=== PATIENT | female | born 1945 | race Caucasian/White ===

== ENCOUNTER 2019-11-30 19:20 | Inpatient (IN) | payer MEDICARE, MEDICAID ==
[2019-12-01 03:19] VITALS: BP 133/88
[2019-12-01] MEDS ORDERED: Acetaminophen 500 MG TAB PO PRN (03:19)
[2019-12-01] MEDS ORDERED: Maalox 30 mL Cup PO PRN (03:19)
[2019-12-01] MEDS ORDERED: Magnesium Hydroxide (MOM) 30 mL UDC PO PRN (03:19)
[2019-12-01] MEDS ORDERED: GLUCAGON HCl 1 MG KIT IM PRN (04:39)
[2019-12-01] MEDS: INSULIN LISPRO SLIDING SCALE 100 UNITS/ML UNIT SUBQ SCH ×4 (06:53→21:10)
--- NOTE | 2019-12-01 08:07 | Consultation ---
DATE OF CONSULTATION: 12/01/2019 INTERNAL MEDICINE CONSULTATION HISTORY OF PRESENT ILLNESS: We have a 74-year-old female with multiple medical problems who was at a [facility] where she became very combative and agitated. The patient has no chest pain, no shortness of breath, nausea, or vomiting. The patient is being very combative with the nursing staff. She is not cooperative with answering many questions. PAST MEDICAL HISTORY: 1. Diabetes. 2. Bipolar. 3. Hyperlipidemia. 4. Hypertension. 5. History of acute renal failure. 6. Obesity. 7. History of pneumonia. 8. Cardiac arrhythmia. 9. Congestive heart failure. 10. Parkinson's. 11. Probable dementia. PAST SURGICAL HISTORY: As mentioned above. MEDICATIONS: List completely reviewed. ALLERGIES: None. SOCIAL HISTORY: The patient denies tobacco, alcohol or IV drugs. REVIEW OF SYSTEMS: A 14-point review of system was done, which was unremarkable. PHYSICAL EXAMINATION: VITAL SIGNS: Temperature is 98.2, pulse is 89, respirations 20, blood pressure 133/88, satting 98% on room air. HEENT: Normocephalic, atraumatic head exam. NECK: Supple. CARDIOVASCULAR: Regular rate and rhythm. LUNGS: Decreased breath sounds. ABDOMEN: Soft, nontender. EXTREMITIES: No edema, cyanosis or clubbing. ASSESSMENT AND PLAN: 1. 5150. 2. Agitation, combativeness. 3. Diabetes. 4. Bipolar disorder. 5. Hypertension. 6. History of renal failure. 7. Status post pneumonia. 8. Obesity. 9. History of questionable cardiac arrhythmia. 10. Congestive heart failure. 11. Parkinson's. At this time, the patient's medications will be continued. We will continue with supportive care. I have discussed the care plan with the psychiatrist and nursing staff here. This visit was performed with a female linux administrator. Chart was completely reviewed by me and outside medical records. JOB# [id number] ANTON
--- NOTE | 2019-12-01 14:39 | Psychiatric Evaluation ---
DATE OF SERVICE: 12/01/2019 JUSTIFICATION FOR HOSPITALIZATION: The patient sent from [facility] agitation, yelling and confusion, hitting staff. HISTORY OF PRESENT ILLNESS: A 74-year-old female was at [facility], but aggressive, agitated, yelling, screaming, paranoid, trying to call the police, believing that she was being kidnapped, confused, hitting staff, aggressive toward others. On [id number], the patient just AO to name only, stating "I need to call a taxi so she can go home." PAST PSYCHIATRIC HISTORY: Bipolar per history. Unclear if she has got dementia. FAMILY HISTORY: Noncontributory. SOCIAL HISTORY: All I know is that she is in a [facility], not answering any other questions. MEDICATIONS: Reviewed. MEDICAL HISTORY: Reviewed including diabetes. MENTAL STATUS EXAMINATION: Stated age. Fair eye contact. Unkempt, bizarre, pressured speech, not making much sense, AO to name. Convinced that she needs to go home today. Poor insight, poor impulse control. PROVISIONAL DIAGNOSES: Bipolar per history, concerns for dementia, but unclear. ESTIMATED LENGTH OF STAY: 7-10 days. ASSESSMENT: The patient requiring hospitalization, bizarre, hitting, aggressive, yelling, screaming, cursing. TREATMENT PLAN: Includes group as well as milieu therapy. Titration of medications. CONDITIONS FOR DISCHARGE: Improved mood, improved affect, better control of any manic symptoms, aggression, violent. JOB# [id number]
[2019-12-02] MEDS: INSULIN LISPRO SLIDING SCALE 100 UNITS/ML UNIT SUBQ SCH ×4 (06:46→21:09)
--- NOTE | 2019-12-02 23:22 | Progress Notes ---
DATE: 12/02/2019 Dr. Kingston covering for Dr. Morgan Gleason. SUBJECTIVE: The patient was interviewed. Case was discussed with staff. Chart and records were reviewed. The patient has been constantly yelling out loud. She is not making any sense. She is screaming at unseen others, very psychotic at this time. Unable to cooperate with the interview. She is impulsively yelling out loud and not able to be redirected. MENTAL STATUS EXAMINATION: The patient is an elderly female in bed, yelling at the top of her lungs, disorganized, and responding to internal stimuli. Unable to assess for suicidal or homicidal thoughts. She is alert and oriented x 1. Insight, judgment and impulse control is very poor at this time. ASSESSMENT: This is a 74-year-old female, admitted to [facility] on 12/01/2019 yesterday due to increasing agitation, yelling, screaming and paranoia. The patient at this time continues to have similar symptoms. She continues to be extremely psychotic and paranoid, yelling out loud, unable to cooperate at all with the simple interview and has no plan for self-care. PLAN: We will continue the patient's acute hospitalization. We will transition the patient onto a 14-day hold. We will encourage the patient to verbalize her needs and participate in group and milieu therapy. JOB# [id number]
[2019-12-03] MEDS: INSULIN LISPRO SLIDING SCALE 100 UNITS/ML UNIT SUBQ SCH ×4 (06:36→21:05)
--- NOTE | 2019-12-03 23:05 | Progress Notes ---
DATE: 12/03/[address] Morgan Gleason. SUBJECTIVE: The patient was interviewed. Case was discussed with staff. Chart and records were reviewed. Per the staff, the patient has been constantly screaming for no apparent reasons. She is only alert and oriented to her name. The patient is overall uncooperative. She is talking to unseen others, labile and angry. The patient was visited at bedside. She is not making any sense. She is talking very loudly. She is very angry. She has poor insight into her condition. She is not able to really discuss her internal state much more than this. MENTAL STATUS EXAMINATION: The patient is an elderly female in bed, yelling loudly, uncooperative with the interview, disorganized. Unable to assess for suicidal or homicidal thoughts, internally preoccupied, paranoid. Alert and oriented x 1. Insight, judgment and impulse control are poor. ASSESSMENT: A 74-year-old female admitted to [facility] on 12/01/2019 due to increasing agitation, yelling and screaming and paranoid. The patient at this time continues with similar symptoms. She is yelling at the top of her lungs. She is not able to state why this is the case. In addition, she is paranoid. She is easily angered and she has no plan for self-care. PLAN: We will continue patient on acute hospitalization. We will continue medications as prescribed. We will encourage patient to verbalize needs and participate in group and milieu therapy. JOB# [id number]
[2019-12-04] MEDS: INSULIN LISPRO SLIDING SCALE 100 UNITS/ML UNIT SUBQ SCH ×4 (06:36→21:08)
[2019-12-04] MEDS: Lactobacillus Rhamnosus GG 15 Billion CFU CAP.SPRINK PO SCH (08:28)
--- NOTE | 2019-12-04 12:55 | Progress Notes ---
DATE: 12/04/2019 SUBJECTIVE: The patient has no chest pain, shortness of breath. No nausea, vomiting, abdominal pain. PHYSICAL EXAMINATION: GENERAL: The patient's agitation is controlled. VITAL SIGNS: Temperature is 98.4, pulse 105, respirations 20, blood pressure 146/84. HEENT: Normocephalic, atraumatic head exam. NECK: Supple. CARDIOVASCULAR: Regular rate and rhythm. LUNGS: Decreased breath sounds. ABDOMEN: Soft, nontender. LABORATORY DATA: Show blood sugar of 124, 107, 112. ASSESSMENT AND PLAN: 1. Agitation. 2. Combativeness. 3. Diabetes. 4. Bipolar. 5. Hypertension. 6. History of renal failure. 7. History of congestive heart failure. 8. History of cardiac arrhythmia. At this time, blood sugars appear to be controlled. Blood pressure is not optimal, may consider adding a low-dose KIMBERLY inhibitor for better blood pressure control. In the meantime, the patient will continue with Glucotrol and sliding scale insulin. Awaiting the final hemoglobin A1c and lipid panel. JOB# [id number]
--- NOTE | 2019-12-04 13:11 | Progress Notes ---
DATE: 12/04/2019 SUBJECTIVE: This is a 74-year-old female, currently in the hospital, still yelling, screaming, very confused in her bed, naked in fact, just staring at me blankly, does not say anything, I try to put a sheet on her, but she resists, currently on dosing of Seroquel and Depakote. Staff noting still yelling, agitation, extreme confusion, constantly screaming for no apparent reasons, just knows her name, not cooperative as noted, angry, very poor insight. female of stated age, staring at me blankly, not appropriately closed, seems to be internally preoccupied, paranoid, bizarre, poor orientation, poor impulse control. Medications were reviewed. Vitals were reviewed. Blood pressure 146/84, pulse of 105. Her medications were noted include Seroquel. PLAN: Difficult case, multiple medical problems, diabetes, possible dementia diagnosis, but it is somewhat unclear. Some complexities in even prescribing Seroquel to this patient given her diabetes diagnosis. I will switch agents something that is metabolically more tolerable such as Risperdal or Haldol. We will continue to monitor closely given ongoing and acute symptoms. JOB# [id number]
[2019-12-05] MEDS: INSULIN LISPRO SLIDING SCALE 100 UNITS/ML UNIT SUBQ SCH ×3 (06:53→16:45)
[2019-12-05] MEDS: Lactobacillus Rhamnosus GG 15 Billion CFU CAP.SPRINK PO SCH (08:22)
--- NOTE | 2019-12-05 15:20 | Progress Notes ---
DATE: 12/05/2019 Case was discussed with staff of the patient, reviewed records. Covering for Dr. Gleason. This is a 74-year-old female who was admitted on 12/01/2019, transferred from a nursing facility because of aggressive, agitated behavior, yelling and screaming. Parents are trying to call the police, believing that she was being kidnapped, confused, hitting staff, aggressive towards others. The patient taxi with a history of bipolar disorder, unable to answer questions. The patient is apparently unpredictable, impulsive, needing redirection. Continues to have poor insight, acting erratic, unable to answer questions, resistant to care. Her vital signs are stable. She is currently on Seroquel. The patient has multiple medical conditions and dementia. No side effects with the medication, no sedation, no nausea, no extrapyramidal symptoms. She is on Depakote 500 mg twice a day, Seroquel was discontinued and changed to Risperdal 0.5 mg twice a day with no side effects, no sedation, no nausea, no extrapyramidal symptoms. We will continue outpatient group therapy, milieu therapy, and adjust medications as needed. JOB# [id number] ANTON
--- NOTE | 2019-12-05 18:39 | Progress Notes ---
DATE: 12/05/2019 SUBJECTIVE: No fevers, chills, night sweats. OBJECTIVE: VITAL SIGNS: Temperature is 98.3, pulse 120, respirations 20, and blood pressure is 150/91. HEENT: Normocephalic, atraumatic head exam. NECK: Supple. CARDIOVASCULAR: Regular rate and rhythm. LUNGS: Clear. ABDOMEN: Soft, nontender. EXTREMITIES: No edema, cyanosis or clubbing. ASSESSMENT: 1. Diabetes. 2. Bipolar. 3. Hypertension. 4. History of renal failure. PLAN: The patient's tachycardia will need to be addressed. We will do repeat vitals. May need an EKG, if the tachycardia is persistent. JOB# [id number]
--- NOTE | 2019-12-06 13:37 | Discharge Summary ---
DATE OF DISCHARGE: 12/05/2019 JUSTIFICATION FOR HOSPITALIZATION: The patient confused, yelling, aggressive, agitated, hitting staff. HISTORY OF PRESENT ILLNESS: A 74-year-old female was yelling, aggressive, hitting staff, confused, disorganized, history of bipolar, could not care for basic needs, coming from a correction. When she came to the hospital, she was very agitated, confused, still aggressive. PAST PSYCHIATRIC HISTORY: Unclear. Noted bipolar in the chart. SOCIAL HISTORY: Coming from a correction. PROVISIONAL DIAGNOSES: Bipolar per history, concerns for dementia, delirium. HOSPITAL COURSE: After initial assessment, the patient was admitted, placed on a 14-day hold. Medications were adjusted, titrated, medically decompensated, sent to a [facility] on 12/05/2019. CONDITIONS FOR DISCHARGE: Could benefit from further hospitalization. DISCHARGE DIAGNOSES: Bipolar per documentation, concerns for dementia versus delirium. MEDICAL: Please see full H and P. PROGNOSIS: Could benefit from further hospitalization. JOB# [id number]
== END 2019-12-05 17:15 | DRG 885 ==
LOC: GERO 12-01 01:20
PROVIDERS: ADMIT Psychiatry & Neurology Psychiatry; ATTEND Psychiatry & Neurology Psychiatry
DX: F31.9 Bipolar disorder, unspecified (principal); I11.0 Hypertensive heart disease with heart failure; E11.9 Type 2 diabetes mellitus without complications; E66.9 Obesity, unspecified; I50.9 Heart failure, unspecified; G20 Parkinson's disease; Z68.32 Body mass index [BMI] 32.0-32.9, adult
CPT/HCPCS: 82948-90; 83036-90; Z7610

== ENCOUNTER 2019-12-11 15:52 | Inpatient (IN) | payer MEDICARE, MEDICAID ==
[2019-12-11 16:51] VITALS: BP 158/81
[2019-12-11] MEDS ORDERED: Maalox 30 mL Cup PO PRN (16:54)
[2019-12-11] MEDS ORDERED: Magnesium Hydroxide (MOM) 30 mL UDC PO PRN (16:54)
[2019-12-12] MEDS: INSULIN LISPRO SLIDING SCALE 100 UNITS/ML UNIT SUBQ SCH ×4 (07:00→21:00)
[2019-12-12] MEDS: Multivitamin Tab PO SCH (08:35)
--- NOTE | 2019-12-12 10:09 | Psychiatric Evaluation ---
DATE OF SERVICE: 12/12/2019 JUSTIFICATION FOR HOSPITALIZATION: Altered, impulsive, unpredictable, concerns for ability to care for basic needs. HISTORY OF PRESENT ILLNESS: A 74-year-old female who was transferred to [facility] originally from [facility]. There she was loud, unruly, agitated, trying to hit staff. Currently, very confused, disoriented, making nonsensical statements. AO to name. She knows she is in a hospital. She does not know why she is in the hospital. Placed her a blanket as the reason she is in the hospital, does not know the year. Very poor historian, yelling for no reason and agitated, ongoing poor impulse control, concerns that she may strike out at others. PAST PSYCHIATRIC HISTORY: Recent admission to this hospital. Concerns for bipolar, positive cognitive decline. PAST MEDICAL HISTORY: Diabetes, hyperlipidemia, hypertension, CHF, obesity. MEDICATIONS: Reviewed. SOCIAL HISTORY: Unclear, poor historian. The patient requires a higher level of nursing care. Vitals were noted. Blood pressure 158/81, pulse mild tachycardia. MENTAL STATUS EXAMINATION: Stated age. Fair eye contact. Speech is rambling, nonsense, AO to name and place only. Unclear SI or HI, delusional, making nonsensical statements, poor impulse control. Poor insight. DIAGNOSIS: Concerns for bipolar, concerns for dementia. MEDICAL: Noted. ESTIMATED LENGTH OF STAY: 7-10 days. ASSESSMENT: The patient requiring hospitalization, cannot be cared for at a lower level, agitated, impulsive, aggressive. PLAN: Treatment plan includes group as well as milieu therapy. We will titrate and adjust medications. Continue to titrate Risperdal. Monitor vitals, tachycardia for example. CONDITIONS FOR DISCHARGE: Improved mood, improved affect, better control of her agitation. [facility]# [id number]
[2019-12-13] MEDS: INSULIN LISPRO SLIDING SCALE 100 UNITS/ML UNIT SUBQ SCH ×4 (06:46→21:47)
[2019-12-13] MEDS: Multivitamin Tab PO SCH (08:18)
--- NOTE | 2019-12-13 10:55 | Consultation ---
DATE OF CONSULTATION:12/13/19 [facility] INTERNAL MEDICINE CONSULTATION CHIEF COMPLAINT: Pneumonia. HISTORY OF PRESENT ILLNESS: We have a 74-year-old female with bipolar, diabetes, hypertension, who was recently transferred to [facility] for treatment of pneumonia. The patient was found to be tachycardic. At this time, the patient has no shortness of breath, no chest pain. No fevers, chills or night sweats. PAST MEDICAL HISTORY: 1. Diabetes. 2. Bipolar. 3. Hypertension. 4. Recent renal failure. PAST SURGICAL HISTORY: None. MEDICATIONS: List reviewed. ALLERGIES: None. SOCIAL HISTORY: Tobacco, IV drugs, ETOH negative. PHYSICAL EXAMINATION: VITAL SIGNS: Temperature is 98.6, pulse 105, respirations 16, blood pressure is 146/92. HEENT: Normocephalic, atraumatic head exam. NECK: Supple. CARDIOVASCULAR: Regular rate and rhythm. LUNGS: Decreased breath sounds. ABDOMEN: Soft, nontender. EXTREMITIES: No edema, cyanosis or clubbing. ASSESSMENT AND PLAN: 1. Pneumonia. 2. Bipolar. 3. Diabetes. 4. Hypertension. The patient will be continued on same meds. The patient will continue Levaquin 500 mg p.o. daily for 7 days. [facility]# [id number] [facility]ITAL[facility]
--- NOTE | 2019-12-13 12:31 | Progress Notes ---
DATE: 12/13/2019 SUBJECTIVE: A 74-year-old female, currently in the hospital, very confused, disoriented, slept about 5 hours, does not know where she is or what is going on. AO to name only, preoccupied, mostly keeps to self, withdrawn, rambling nonsensically, hard to understand what she is talking about because she is so incredibly confused, throwing her clothes on the ground, at times, not appropriately dressed, mumbling to self, multiple medical problems, seen by Dr. Flores. Medications were reviewed. Labs were reviewed. Vitals were reviewed. Reviewed consultation note by Dr. Flores. Medical problems include pneumonia, diabetes, hypertension, recent renal failure. Vitals were noted. Blood pressure 147/89, pulse of approximately 105. MENTAL STATUS EXAMINATION: Stated age. Fair eye contact, rambling, talking nonsense and bizarre ideations. Poor orientation, poor impulse control, unruly at times. Concerns for bipolar, likely dementia. PLAN: Complex case, multiple medical problems, hard to control symptoms, high heart rate. We will continue dosing of Risperdal. Monitor closely. JOB# [id number]
[2019-12-14] MEDS ORDERED: Albuterol Nebulizer 2.5mg/3mL HHN PRN (06:29)
[2019-12-14] MEDS: INSULIN LISPRO SLIDING SCALE 100 UNITS/ML UNIT SUBQ SCH (06:50)
[2019-12-14] MEDS: Multivitamin Tab PO SCH (08:24)
--- NOTE | 2019-12-14 11:54 | Progress Notes ---
DATE: 12/14/2019 I came to see the patient today. She was being wheeled out, went to [place] [facility], apparent shortness of breath, limited to no interaction with the patient, given the emergent nature of what was going on. Discussed with nursing staff. Medications were reviewed. Labs were reviewed. It is unclear whether the patient will be admitted to [facility] or perhaps she may return after medical stabilization. JOB# [id number]
--- NOTE | 2019-12-14 12:56 | Discharge Summary ---
DATE OF DISCHARGE: 12/14/2019 JUSTIFICATION FOR HOSPITALIZATION: Coming on a 5150 hold from [facility], readmitted, agitated and aggressive. HISTORY OF PRESENT ILLNESS: A 74-year-old female, agitated, confused, aggressive and unable to be cared for at a lower level of care, screaming, talking nonsense, ongoing confusion. PAST PSYCHIATRIC HISTORY: Recent admission. FAMILY HISTORY: Unclear. SOCIAL HISTORY: Unclear. PROVISIONAL DIAGNOSIS: Likely dementia, rule out bipolar. MEDICAL: Please see full H and P. HOSPITAL COURSE: The patient admitted. Medications were re-started. She decompensated medically, sent back to [facility] and admitted, chronic tachycardia, could benefit from further hospitalization, confused, disoriented. No overt SI or HI, talking nonsense. DISCHARGE DIAGNOSIS: Likely dementia, rule out bipolar. PROGNOSIS: The patient could benefit from further hospitalization. JOB# [id number]
== END 2019-12-14 08:56 | disposition short-term general hospital (02) | DRG 884 ==
LOC: GERO 15:52
PROVIDERS: ADMIT Psychiatry & Neurology Psychiatry; ATTEND Psychiatry & Neurology Psychiatry
DX: F03.90 Unspecified dementia, unspecified severity, without behavioral disturbance, psychotic disturbance, mood disturbance, and anxiety (principal); I11.0 Hypertensive heart disease with heart failure; J18.9 Pneumonia, unspecified organism; E11.9 Type 2 diabetes mellitus without complications; E78.5 Hyperlipidemia, unspecified; I50.9 Heart failure, unspecified; F31.9 Bipolar disorder, unspecified; R00.0 Tachycardia, unspecified; E66.9 Obesity, unspecified; Z68.32 Body mass index [BMI] 32.0-32.9, adult
CPT/HCPCS: 82948-90; 97530; J7613; X3904; Z7610

== ENCOUNTER 2019-12-18 20:15 | Inpatient (IN) | payer MEDICARE, MEDICAID ==
[2019-12-18] MEDS ORDERED: Albuterol Nebulizer 2.5mg/3mL HHN PRN (20:25)
[2019-12-19 02:33] VITALS: BP 114/68
[2019-12-19] MEDS ORDERED: Magnesium Hydroxide (MOM) 30 mL UDC PO PRN (03:48)
--- NOTE | 2019-12-19 12:38 | Psychiatric Evaluation ---
DATE OF SERVICE: 12/19/2019 JUSTIFICATION FOR HOSPITALIZATION: Coming back from [facility] due to exacerbation of COPD, ongoing agitation, confusional state. HISTORY OF PRESENT ILLNESS: A 74-year-old female, currently in the hospital, was readmitted, confused, very disoriented, still yelling, screaming, very difficult to control her behaviors, AO to name, not place, not situation. She states the year is 2021. She states the month is October. She states the day is 2018. When I asked her where she was born, she states "[place]," very disoriented, unruly at times, very impulsive behaviors. Per the 5150 hold, confused, poor orientation, nonsensical, unable to really come up with any type of safe disposition plan. PAST PSYCHIATRIC HISTORY: Recent admission to this hospital, seems that she is quite demented, possibly with history of bipolar per documentation. FAMILY HISTORY: Noncontributory. SOCIAL HISTORY: The patient had been at a correction. They could not handle her beyond this, I am not quite clear about any social support systems. MEDICATIONS: Noted. MENTAL STATUS EXAMINATION: Stated age, very confused, disoriented, still loud at times, unruly, extreme confusion noted, delusions, stating that she wants to leave to discharge her home. DIAGNOSIS: Dementia, rule out bipolar. MEDICAL: Please see full H and P. ESTIMATED LENGTH OF STAY: 7-10 days. ASSESSMENT: The patient requiring hospitalization, agitated, very confused, disoriented, hard to follow directions, yelling, screaming. TREATMENT PLAN: Includes group as well as milieu therapy. CONDITIONS FOR DISCHARGE: Improved mood, improved affect, better control of her agitated behaviors, also we need to work on a safe disposition plan. JOB# [id number]
--- NOTE | 2019-12-19 18:58 | Consultation ---
DATE OF CONSULTATION: 12/19/2019 INTERNAL MEDICINE CONSULTATION HISTORY OF PRESENT ILLNESS: I am seeing this patient at the request of Dr. Gleason. We have a 74-year-old female with COPD, hypertension, dementia, who was transferred from [facility] for continued management of COPD and psychosis. The patient is mostly not interactive. No nausea, vomiting, abdominal pain, diarrhea. PAST MEDICAL HISTORY: 1. COPD. 2. Tachycardia. PAST SURGICAL HISTORY: None. MEDICATIONS: List reviewed. ALLERGIES: None. SOCIAL HISTORY: History of tobacco, IV drugs. ETOH negative. PHYSICAL EXAMINATION: VITAL SIGNS: Temperature is 98.6, pulse 79, respirations 20, blood pressure 104/58, satting 91%. HEENT: Normocephalic, atraumatic head exam. NECK: Supple. CARDIOVASCULAR: Regular rate and rhythm. LUNGS: Decreased breath sounds. ABDOMEN: Soft, nontender. EXTREMITIES: No edema, cyanosis or clubbing. ASSESSMENT AND PLAN: 1. Depression. 2. Chronic obstructive pulmonary disease. We will continue with supportive care and go from there. JOB# [id number]
[2019-12-19] MEDS: Magnesium Hydroxide (MOM) 30 mL UDC PO SCH (21:26)
--- NOTE | 2019-12-20 13:42 | Internal Medicine Prog Note ---
Internal Medicine Subjective - Subjective Service Date: 12/20/19 Patient seen and examined:: without staff Patient is:: asleep Internal Medicine Objective - Physical Exam Vitals and I&O: Vital Signs Temp 97.2 F 12/20/19 05:57 Pulse 128 12/20/19 08:56 Resp 20 12/20/19 08:00 BP 116/70 12/20/19 08:56 Pulse Ox 92 12/20/19 05:57 Intake & Output 12/19/19 12/20/19 12/20/19 18:59 06:59 18:59 Intake Total 480 240 Balance 480 240 Intake: Oral 480 240 Other: # Voids 3 2 # Bowel Movements 0 0 Active Medications: Current Medications Acetaminophen (Tylenol) 650 mg PO Q4H PRN PRN Reason: Pain (Mild 1-3) Stop: 02/17/20 02:33 Albuterol Sulfate (Albuterol 2.5mg/3ml Neb Ud) 2.5 mg HHN Q4HRT PRN PRN Reason: Shortness of Breath Stop: 02/16/20 20:24 Divalproex Sodium (Depakote Dr) 500 mg PO BID [facility]; Protocol Stop: 02/17/20 11:59 Last Admin: 12/20/19 08:56 Dose: 500 mg Glipizide (Glucotrol) 5 mg PO QDAC [facility] Stop: 02/17/20 07:29 Last Admin: 12/20/19 06:44 Dose: 5 mg Lorazepam (Ativan) 0.5 mg PO Q4HR PRN; Protocol PRN Reason: Anxiety Stop: 01/18/20 02:33 Magnesium Hydroxide (Milk Of Magnesia) 30 ml PO HS [facility] Stop: 02/17/20 20:59 Last Admin: 12/19/19 21:26 Dose: 30 ml Metoprolol Tartrate (Lopressor) 50 mg PO BID [facility] Stop: 02/17/20 08:59 Last Admin: 12/20/19 08:56 Dose: 50 mg Risperidone (Risperdal) 0.5 mg PO BID [facility]; Protocol Stop: 02/17/20 11:59 Last Admin: 12/20/19 08:56 Dose: 0.5 mg Senna (Senna) 8.6 mg PO BID [facility] Stop: 02/17/20 08:59 Last Admin: 12/20/19 08:56 Dose: 8.6 mg Zolpidem Tartrate (Ambien) 5 mg PO HS PRN PRN Reason: Insomnia Stop: 02/17/20 02:33 General: lethargic HEENT: NC/AT Neck: Supple Lungs: CTAB Cardiovascular: RRR Abdomen: soft Internal Medicine Assmt/Plan - Assessment Assessment: 1. Agitation 2. A.fib 3. Recent pneumonia - Plan Plan: continue supportive care
[2019-12-20] MEDS: Magnesium Hydroxide (MOM) 30 mL UDC PO SCH (21:37)
--- NOTE | 2019-12-20 23:15 | Progress Notes ---
DATE: 12/20/2019 SUBJECTIVE: A 74-year-old female who is sleeping on exam, mostly withdrawn, limited [id number], because she is tired. Staff noting she remains somewhat labile, at times irritable, but generally confused, difficult to interview. The patient is somewhat sleepy on exam. Discussed with staff. Medications were reviewed. Labs were reviewed. Vitals were reviewed. Possible side effect of medications but it is unclear at this time. MENTAL STATUS EXAMINATION: Stated age. Fair eye contact, sleepy, hard to arouse, confused. No overt SI or HI. DIAGNOSIS: Unchanged. PLAN: We will continue to monitor. The patient remains sleepy or tired during the daytime. We will make appropriate medication adjustments. JOB# [id number]
--- NOTE | 2019-12-21 15:27 | Internal Medicine Prog Note ---
Internal Medicine Subjective - Subjective Service Date: 12/21/19 Patient seen and examined:: without staff Patient is:: asleep, non-verbal, non-interactive Per staff patient has:: no adverse event, no episodes of fall Internal Medicine Objective - Physical Exam Vitals and I&O: Vital Signs Temp 98.1 F 12/21/19 14:00 Pulse 99 12/21/19 14:00 Resp 20 12/21/19 14:00 BP 137/94 12/21/19 14:00 Pulse Ox 90 12/21/19 14:00 Intake & Output 12/20/19 12/21/19 12/21/19 18:59 06:59 18:59 Intake Total 670 120 Balance 670 120 Intake: Oral 670 120 Other: # Voids 2 # Bowel Movements 0 Active Medications: Current Medications Acetaminophen (Tylenol) 650 mg PO Q4H PRN PRN Reason: Pain (Mild 1-3) Stop: 02/17/20 02:33 Albuterol Sulfate (Albuterol 2.5mg/3ml Neb Ud) 2.5 mg HHN Q4HRT PRN PRN Reason: Shortness of Breath Stop: 02/16/20 20:24 Last Admin: 12/20/19 14:35 Dose: 2.5 mg Divalproex Sodium (Depakote Dr) 125 mg PO BID [facility]; Protocol Stop: 02/19/20 16:59 Glipizide (Glucotrol) 5 mg PO QDAC [facility] Stop: 02/17/20 07:29 Last Admin: 12/21/19 06:58 Dose: 5 mg Lorazepam (Ativan) 0.5 mg PO Q4HR PRN; Protocol PRN Reason: Anxiety Stop: 01/18/20 02:33 Magnesium Hydroxide (Milk Of Magnesia) 30 ml PO HS [facility] Stop: 02/17/20 20:59 Last Admin: 12/20/19 21:37 Dose: 30 ml Metoprolol Tartrate (Lopressor) 50 mg PO BID [facility] Stop: 02/17/20 08:59 Last Admin: 12/21/19 08:36 Dose: 50 mg Risperidone (Risperdal) 0.25 mg PO BID [facility]; Protocol Stop: 02/19/20 16:59 Senna (Senna) 8.6 mg PO BID [facility] Stop: 02/17/20 08:59 Last Admin: 12/21/19 08:37 Dose: 8.6 mg Zolpidem Tartrate (Ambien) 5 mg PO HS PRN PRN Reason: Insomnia Stop: 02/17/20 02:33 General: lethargic HEENT: NC/AT Neck: Supple Lungs: CTAB Cardiovascular: RRR Abdomen: soft Internal Medicine Assmt/Plan - Assessment Assessment: 1. Agitation 2. A.fib 3. Recent pneumonia - Plan Plan: continue supportive care
--- NOTE | 2019-12-21 19:16 | Progress Notes ---
DATE: 12/21/2019 SUBJECTIVE: The patient is currently in the hospital, very confused, disoriented, coming in with multiple medical problems. Staff watching her closely. Poor orientation, AO to name only, very sleepy on exam. The patient is hard to interview, just tells me her name, not really telling me anything else. She is on dosing of Depakote. I am going to lower her dosing of Depakote to half the dose or rather more than that, I will lower down to 125 mg twice a day given concerns for over sedation. It was to control her unruly behaviors, poor impulse control, but at this time, she is more medically unwell and is not exhibiting those behaviors. She is also on a small dose of Risperdal. I will also lower the dose down to 0.25 mg twice a day, also for concerns in regards to oversedation. Discussed with nursing staff. Nursing staff notes are reviewed. MEDICATIONS: Reviewed. LABS: Reviewed. VITALS: Reviewed. Blood pressure 141/67, pulse of 105. MENTAL STATUS EXAMINATION: Stated age. Fair eye contact. Speech mumbled. No overt SI or HI, sleepy. ASSESSMENT: A 74-year-old female, currently in the hospital, sleepy, hard to arouse, concerns about her medical problems, possible med-med interactions. PLAN: We will continue inpatient monitoring. We will lower dosing of Depakote and Risperdal. Monitor closely. Complex case given the difficulty in regard to adjusting her medications and also side effects have been a problem, also her medical problems. [facility]# [id number]
[2019-12-21] MEDS: Magnesium Hydroxide (MOM) 30 mL UDC PO SCH (21:28)
--- NOTE | 2019-12-22 12:19 | Internal Medicine Prog Note ---
Internal Medicine Subjective - Subjective Service Date: 12/22/19 Patient seen and examined:: without staff Patient is:: asleep, non-verbal, non-interactive Per staff patient has:: no adverse event, no episodes of fall Internal Medicine Objective - Results Recent Labs: Laboratory Last Values POC Glucose 66 MG/DL (70 - 105) L 12/22/19 11:37 - Physical Exam Vitals and I&O: Vital Signs Temp 98.2 F 12/22/19 05:42 Pulse 80 12/22/19 09:03 Resp 18 12/22/19 05:42 BP 125/44 12/22/19 09:03 Pulse Ox 92 12/22/19 05:42 Intake & Output 12/21/19 12/22/19 12/22/19 18:59 06:59 18:59 Intake Total 1200 240 Balance 1200 240 Intake: Oral 1200 240 Other: # Voids 2 # Bowel Movements 1 2 Active Medications: Current Medications Acetaminophen (Tylenol) 650 mg PO Q4H PRN PRN Reason: Pain (Mild 1-3) Stop: 02/17/20 02:33 Albuterol Sulfate (Albuterol 2.5mg/3ml Neb Ud) 2.5 mg HHN Q4HRT PRN PRN Reason: Shortness of Breath Stop: 02/16/20 20:24 Last Admin: 12/20/19 14:35 Dose: 2.5 mg Divalproex Sodium (Depakote Dr) 125 mg PO BID [facility]; Protocol Stop: 02/19/20 16:59 Last Admin: 12/22/19 09:03 Dose: 125 mg Glipizide (Glucotrol) 5 mg PO QDAC [facility] Stop: 02/17/20 07:29 Last Admin: 12/22/19 06:34 Dose: 5 mg Lorazepam (Ativan) 0.5 mg PO Q4HR PRN; Protocol PRN Reason: Anxiety Stop: 01/18/20 02:33 Magnesium Hydroxide (Milk Of Magnesia) 30 ml PO HS [facility]PL[facility] Stop: 02/17/20 20:59 Last Admin: 12/21/19 21:28 Dose: 30 ml Metoprolol Tartrate (Lopressor) 50 mg PO BID [facility] Stop: 02/17/20 08:59 Last Admin: 12/22/19 09:03 Dose: 50 mg Risperidone (Risperdal) 0.25 mg PO BID [facility]; Protocol Stop: 02/19/20 16:59 Last Admin: 12/22/19 09:02 Dose: 0.25 mg Senna (Senna) 8.6 mg PO BID [facility] Stop: 02/17/20 08:59 Last Admin: 12/22/19 09:02 Dose: 8.6 mg Zolpidem Tartrate (Ambien) 5 mg PO HS PRN PRN Reason: Insomnia Stop: 02/17/20 02:33 General: lethargic HEENT: NC/AT Neck: Supple Lungs: CTAB Cardiovascular: RRR Abdomen: soft Internal Medicine Assmt/Plan - Assessment Assessment: 1. Agitation 2. A.fib 3. Recent pneumonia - Plan Plan: continue supportive care Nutritional Asmnt/Malnutr-PDOC - Dietary Evaluation Malnutrition Findings (Please click <Entered> for more info): Nutritional Asmnt/Malnutrition Start: 12/21/19 16: 43 Text: Status: Complete Freq: Protocol: Document 12/21/19 16:43 CHARLES (Rec: 12/21/19 16:45 CHARLES [email or web address]) Nutritional Asmnt/Malnutrition Patient General Information Nutritional Screening Moderate Risk Diagnosis Psychosis Pertinent Medical Hx/Surgical Hx COPD, Tachycardia, HTN, Dementia Subjective Information Pt is a 74-year-old female re- admitted on 12/17 d/t medical clearance at [facility] and confusion, yelling, and difficulty controlling behaviors. Pt is eating an estimated 40% of meals since re-admittance (x2 days) Per Meal/Nutrition Activity Record. Dietary is currently providing an estimated 1800 kcals and 110 gm Pro, per Pt PO intake this is providing an estimated 700 kcals and 45gm Pro to meet 41% kcal and 70% Pro needs- inadequate. Visited pt in afternoon, pt was able to answer simple questions. Answered questions, but also added nonsensicle words. Pt Nurse Jacquelyn thought maybe pt is a little exhausted when trying to eat as she has breathing difficulties, let her know I will provide Glucerna during snack times to help meet kcal needs and it may alleviate the energy of chewing during BLD. Offered pt a Glucerna shake and she accepted, stated chocolate when given a choice of flavor. Adding Glucerna BID at snack time to increase kcal intake. Anthropometrics HT: 57 WT: 184 LB (83.64 kg) ABW: 147 LB (66.93 kg) BMI: 28.82 (Overweight) GI/ Skin Integrity GI: WNL, Soft, Non-tender, Round BM: Not Noted I/O: 790/Not Noted Skin: Intact, Bruises Aamir: 15 Diet Order: [facility] 60 Estimated Energy Needs: ( Geriatric, ABW) 3782-4750 kcals (25-30 kcals/ kg) 65-80g Pro (1.0-1.2 g/kg) 7584-5421 ml (25-30 ml/kg) Current Diet Order/ [facility] Pertinent Medications Albuterol (PRN), Glucotrol, MOM (PRN), Senna Pertinent Labs 12/18: HDL 38, A1C 6.3% Nutritional Hx/Data Height 1.7 m Height (Calculated Centimeters) 170.2 Current Weight (lbs) 83.461 kg Weight (Calculated Kilograms) 83.5 Weight (Calculated Grams) 07097.0 [place] Body Weight 135 LB (61.36 kg) % [place] Body Weight 136 Body Mass Index (BMI) 28.8 Weight Status Overweight GI Symptoms Last BM Not Noted Skin Integrity/Comment: Skin: Intact, Bruises Aamir: 15 Nutritional Problem 2. Problem Problem Impaired nutrient utilization Etiology r/t endocrine dysfunction Signs/Symptoms: aeb labs (12/18) A1C 6.3%. 1. Problem Problem Inadequate energy intake Etiology r/t possible exhaustion from breathing issues Signs/Symptoms: aeb nurse report and PO intake 40% since re-admittance (x2 days). Intervention/Recommendation Comments 1.Continue CCHO 60gm diet as tolerated. 2.Add Glucerna BID at snack times (completed). Expected Outcomes/Goals Expected Outcomes/Goals 1.PO intake to meet 75% of estimated nutritional needs. 2.Monitor PO intake, wt, nutrition related labs, and skin integrity. 3.F/U as moderate risk in 3-5 days, 12/23-12/25.
--- NOTE | 2019-12-22 14:28 | Progress Notes ---
DATE: SUBJECTIVE: This is a 74-year-old female, currently in the hospital, still very confused, disoriented, nonsensical on exam, not really making much sense, making some bizarre statements. The patient does poorly oriented, does not know the year, states it is 2, states the month is October. She has no real idea where she is right now. Noted to be with ongoing symptoms, restless. Staff also noting no other health issues need to be addressed. Fair sleep and appetite. She is definitely more awake today. She was pretty sleepy yesterday and the day before. I lowered her medications, which seems to have improved. Her mentation, she is fairly impulsive, unpredictable. When I asked her where she is, she states "one of [place] buildings." Time was spent attempting to get information out of the patient. This was challenging. She is not a very good historian. I had to repeat myself. She is very confused. Medications were reviewed. Vitals were reviewed. Labs were reviewed. No overt side effects. Blood pressure 137/50, pulse of 100. ASSESSMENT AND PLAN: A 74-year-old female, very confused, disoriented, ongoing safety concerns. Medications are continuing to be adjusted. We will continue to monitor. We will continue a smaller dose of medications. I lowered the Risperdal and the Depakote yesterday. This seems to help. JOB# [id number]
[2019-12-22] MEDS: Magnesium Hydroxide (MOM) 30 mL UDC PO SCH (20:40)
--- NOTE | 2019-12-23 12:10 | Internal Medicine Prog Note ---
Internal Medicine Subjective - Subjective Service Date: 12/23/19 Patient seen and examined:: without staff Patient is:: verbal, non-interactive Per staff patient has:: no adverse event, no episodes of fall Internal Medicine Objective - Results Recent Labs: Laboratory Last Values POC Glucose 102 MG/DL (70 - 105) 12/23/19 06:46 - Physical Exam Vitals and I&O: Vital Signs Temp 98.2 F 12/23/19 06:04 Pulse 115 12/23/19 08:27 Resp 19 12/23/19 08:00 BP 142/66 12/23/19 08:27 Pulse Ox 93 12/23/19 06:04 Intake & Output 12/22/19 12/23/19 12/23/19 18:59 06:59 18:59 Intake Total 960 120 Balance 960 120 Intake: Oral 960 120 Other: # Voids 4 1 # Bowel Movements 2 2 Active Medications: Current Medications Acetaminophen (Tylenol) 650 mg PO Q4H PRN PRN Reason: Pain (Mild 1-3) Stop: 02/17/20 02:33 Albuterol Sulfate (Albuterol 2.5mg/3ml Neb Ud) 2.5 mg HHN Q4HRT PRN PRN Reason: Shortness of Breath Stop: 02/16/20 20:24 Last Admin: 12/20/19 14:35 Dose: 2.5 mg Divalproex Sodium (Depakote Dr) 125 mg PO BID [facility]; Protocol Stop: 02/19/20 16:59 Last Admin: 12/23/19 08:27 Dose: 125 mg Glipizide (Glucotrol) 5 mg PO QDAC [facility] Stop: 02/17/20 07:29 Last Admin: 12/23/19 06:57 Dose: 5 mg Lorazepam (Ativan) 0.5 mg PO Q4HR PRN; Protocol PRN Reason: Anxiety Stop: 01/18/20 02:33 Magnesium Hydroxide (Milk Of Magnesia) 30 ml PO HS [facility] Stop: 02/17/20 20:59 Last Admin: 12/22/19 20:40 Dose: 30 ml Metoprolol Tartrate (Lopressor) 50 mg PO BID [facility] Stop: 02/17/20 08:59 Last Admin: 12/23/19 08:27 Dose: 50 mg Risperidone (Risperdal) 0.25 mg PO BID [facility]; Protocol Stop: 02/19/20 16:59 Last Admin: 12/23/19 08:27 Dose: 0.25 mg Senna (Senna) 8.6 mg PO BID [facility] Stop: 02/17/20 08:59 Last Admin: 12/23/19 08:26 Dose: Not Given Zolpidem Tartrate (Ambien) 5 mg PO HS PRN PRN Reason: Insomnia Stop: 02/17/20 02:33 General: NAD HEENT: NC/AT Neck: Supple Lungs: CTAB Cardiovascular: RRR Abdomen: soft Neurological: alert Internal Medicine Assmt/Plan - Assessment Assessment: 1. DM 2. A.fib 3. COPD 4. Recent pneumonia - Plan Plan: discussed and reviewed blood sugars. patient is on glipizide. i am concerned of hypoglycemia will discontinue glipizide continue accu checks q6 hours d/w r.n. check hga1c Nutritional Asmnt/Malnutr-PDOC - Dietary Evaluation Malnutrition Findings (Please click <Entered> for more info): Nutritional Asmnt/Malnutrition Start: 12/21/19 16: 43 Text: Status: Complete Freq: Protocol: Document 12/21/19 16:43 CHARLES (Rec: 12/21/19 16:45 CHARLES [email or web address]) Nutritional Asmnt/Malnutrition Patient General Information Nutritional Screening Moderate Risk Diagnosis Psychosis Pertinent Medical Hx/Surgical Hx COPD, Tachycardia, HTN, Dementia Subjective Information Pt is a 74-year-old female re- admitted on 12/17 d/t medical clearance at [facility] and confusion, yelling, and difficulty controlling behaviors. Pt is eating an estimated 40% of meals since re-admittance (x2 days) Per Meal/Nutrition Activity Record. Dietary is currently providing an estimated 1800 kcals and 110 gm Pro, per Pt PO intake this is providing an estimated 700 kcals and 45gm Pro to meet 41% kcal and 70% Pro needs- inadequate. Visited pt in afternoon, pt was able to answer simple questions. Answered questions, but also added nonsensicle words. Pt Nurse Jcaquelyn thought maybe pt is a little exhausted when trying to eat as she has breathing difficulties, let her know I will provide Glucerna during snack times to help meet kcal needs and it may alleviate the energy of chewing during BLD. Offered pt a Glucerna shake and she accepted, stated chocolate when given a choice of flavor. Adding Glucerna BID at snack time to increase kcal intake. Anthropometrics HT: 57 WT: 184 LB (83.64 kg) ABW: 147 LB (66.93 kg) BMI: 28.82 (Overweight) GI/ Skin Integrity GI: WNL, Soft, Non-tender, Round BM: Not Noted I/O: 790/Not Noted Skin: Intact, Bruises Aamir: 15 Diet Order: [facility] 60 Estimated Energy Needs: ( Geriatric, ABW) 8642-6766 kcals (25-30 kcals/ kg) 65-80g Pro (1.0-1.2 g/kg) 7853-0085 ml (25-30 ml/kg) Current Diet Order/ Nutrition Support [facility] 60 Pertinent Medications Albuterol (PRN), Glucotrol, MOM (PRN), Senna Pertinent Labs 12/18: HDL 38, A1C 6.3% Nutritional Hx/Data Height 1.7 m Height (Calculated Centimeters) 170.2 Current Weight (lbs) 83.461 kg Weight (Calculated Kilograms) 83.5 Weight (Calculated Grams) 42227.0 [place] Body Weight 135 LB (61.36 kg) % [place] Body Weight 136 Body Mass Index (BMI) 28.8 Weight Status Overweight GI Symptoms Last BM Not Noted Skin Integrity/Comment: Skin: Intact, Bruises Aamir: 15 Nutritional Problem 2. Problem Problem Impaired nutrient utilization Etiology r/t endocrine dysfunction Signs/Symptoms: aeb labs (12/18) A1C 6.3%. 1. Problem Problem Inadequate energy intake Etiology r/t possible exhaustion from breathing issues Signs/Symptoms: aeb nurse report and PO intake 40% since re-admittance (x2 days). Intervention/Recommendation Comments 1.Continue CCHO 60gm diet as tolerated. 2.Add Glucerna BID at snack times (completed). Expected Outcomes/Goals Expected Outcomes/Goals 1.PO intake to meet 75% of estimated nutritional needs. 2.Monitor PO intake, wt, nutrition related labs, and skin integrity. 3.F/U as moderate risk in 3-5 days, 5/3-5/5.
[2019-12-23] MEDS: Magnesium Hydroxide (MOM) 30 mL UDC PO SCH (20:39)
--- NOTE | 2019-12-23 21:43 | Progress Notes ---
DATE: 12/23/2019 SUBJECTIVE: The patient was seen, chart reviewed, and discussed with staff. The patient has a bright affect, but remains very poorly oriented. Generally not making much sense, appears to be confabulating most of her answers. The patient reported "I am getting somewhat depressed." She has been, however, compliant with medications, denying any undue side effects. PLAN: The patient continues to be very confused and disorganized, so that she will require inpatient care center and treatment. We will monitor on a daily basis for response to medications and titrate medications as needed. JOB# [id number]
--- NOTE | 2019-12-24 11:50 | Internal Medicine Prog Note ---
Internal Medicine Subjective - Subjective Service Date: 12/24/19 Patient seen and examined:: with staff Patient is:: verbal, interactive Per staff patient has:: no adverse event, no episodes of fall Internal Medicine Objective - Results Recent Labs: Laboratory Last Values POC Glucose 94 MG/DL (70 - 105) 12/24/19 06:29 - Physical Exam Vitals and I&O: Vital Signs Temp 97.7 F 12/24/19 06:09 Pulse 116 12/24/19 08:31 Resp 20 12/24/19 08:00 BP 135/53 12/24/19 08:31 Pulse Ox 93 12/24/19 06:09 Intake & Output 12/23/19 12/24/19 12/24/19 18:59 06:59 18:59 Intake Total 1000 300 Output Total 1 Balance 1000 299 Intake: Oral 1000 300 Output: Urine/Stool Mix 1 Other: # Voids 3 1 # Bowel Movements 1 1 Active Medications: Current Medications Acetaminophen (Tylenol) 650 mg PO Q4H PRN PRN Reason: Pain (Mild 1-3) Stop: 02/17/20 02:33 Albuterol Sulfate (Albuterol 2.5mg/3ml Neb Ud) 2.5 mg HHN Q4HRT PRN PRN Reason: Shortness of Breath Stop: 02/16/20 20:24 Last Admin: 12/20/19 14:35 Dose: 2.5 mg Divalproex Sodium (Depakote Dr) 125 mg PO BID [facility]; Protocol Stop: 02/19/20 16:59 Last Admin: 12/24/19 08:34 Dose: 125 mg Lorazepam (Ativan) 0.5 mg PO Q4HR PRN; Protocol PRN Reason: Anxiety Stop: 01/18/20 02:33 Last Admin: 12/24/19 03:58 Dose: 0.5 mg Magnesium Hydroxide (Milk Of Magnesia) 30 ml PO HS [facility] Stop: 02/17/20 20:59 Last Admin: 12/23/19 20:39 Dose: Not Given Metoprolol Tartrate (Lopressor) 50 mg PO BID [facility] Stop: 02/17/20 08:59 Last Admin: 12/24/19 08:31 Dose: 50 mg Risperidone (Risperdal) 0.25 mg PO BID [facility]; Protocol Stop: 02/19/20 16:59 Last Admin: 12/24/19 08:30 Dose: 0.25 mg Senna (Senna) 8.6 mg PO BID [facility] Stop: 02/17/20 08:59 Last Admin: 12/24/19 08:30 Dose: 8.6 mg Zolpidem Tartrate (Ambien) 5 mg PO HS PRN PRN Reason: Insomnia Stop: 02/17/20 02:33 General: NAD HEENT: NC/AT Neck: Supple Lungs: CTAB Cardiovascular: RRR Abdomen: soft Neurological: alert Internal Medicine Assmt/Plan - Assessment Assessment: 1. s/p pneumonia 2. Tachycardia 3. COPD 4. DM s/p hypoglycemia - Plan Plan: continue nebulizers prn patient is more awake continue metoprolol 50 po bid continue blood sugar check while holding glipizide d/w r.n. Nutritional Asmnt/Malnutr-PDOC - Dietary Evaluation Malnutrition Findings (Please click <Entered> for more info): Nutritional Asmnt/Malnutrition Start: 12/21/19 16: 43 Text: Status: Complete Freq: Protocol: Document 12/21/19 16:43 CHARLES (Rec: 12/21/19 16:45 CHARLES [id number]) Nutritional Asmnt/Malnutrition Patient General Information Nutritional Screening Moderate Risk Diagnosis Psychosis Pertinent Medical Hx/Surgical Hx COPD, Tachycardia, HTN, Dementia Subjective Information Pt is a 74-year-old female re- admitted on 12/17 d/t medical clearance at [facility] and confusion, yelling, and difficulty controlling behaviors. Pt is eating an estimated 40% of meals since re-admittance (x2 days) Per Meal/Nutrition Activity Record. Dietary is currently providing an estimated 1800 kcals and 110 gm Pro, per Pt PO intake this is providing an estimated 700 kcals and 45gm Pro to meet 41% kcal and 70% Pro needs- inadequate. Visited pt in afternoon, pt was able to answer simple questions. Answered questions, but also added nonsensicle words. Pt Nurse Jacquelyn thought maybe pt is a little exhausted when trying to eat as she has breathing difficulties, let her know I will provide Glucerna during snack times to help meet kcal needs and it may alleviate the energy of chewing during BLD. Offered pt a Glucerna shake and she accepted, stated chocolate when given a choice of flavor. Adding Glucerna BID at snack time to increase kcal intake. Anthropometrics HT: 57 WT: 184 LB (83.64 kg) ABW: 147 LB (66.93 kg) BMI: 28.82 (Overweight) GI/ Skin Integrity GI: WNL, Soft, Non-tender, Round BM: Not Noted I/O: 790/Not Noted Skin: Intact, Bruises Aamir: 15 [facility] Estimated Energy Needs: ( Geriatric, ABW) 9488-6948 kcals (25-30 kcals/ kg) 65-80g Pro (1.0-1.2 g/kg) 7344-0566 ml (25-30 ml/kg) Current Diet Order/ Nutrition [facility] 60 Pertinent Medications Albuterol (PRN), Glucotrol, MOM (PRN), Senna Pertinent Labs 12/18: HDL 38, A1C 6.3% Nutritional Hx/Data Height 1.7 m Height (Calculated Centimeters) 170.2 Current Weight (lbs) 83.461 kg Weight (Calculated Kilograms) 83.5 Weight (Calculated Grams) 94826.0 [place] Body Weight 135 LB (61.36 kg) % [place] Body Weight 136 Body Mass Index (BMI) 28.8 Weight Status Overweight GI Symptoms Last BM Not Noted Skin Integrity/Comment: Skin: Intact, Bruises Aamir: 15 Nutritional Problem 2. Problem Problem Impaired nutrient utilization Etiology r/t endocrine dysfunction Signs/Symptoms: aeb labs (12/18) A1C 6.3%. 1. Problem Problem Inadequate energy intake Etiology r/t possible exhaustion from breathing issues Signs/Symptoms: aeb nurse report and PO intake 40% since re-admittance (x2 days). Intervention/Recommendation Comments 1.Continue CCHO 60gm diet as tolerated. 2.Add Glucerna BID at snack times (completed). Expected Outcomes/Goals Expected Outcomes/Goals 1.PO intake to meet 75% of estimated nutritional needs. 2.Monitor PO intake, wt, nutrition related labs, and skin integrity. 3.F/U as moderate risk in 3-5 days, /-12/25.
--- NOTE | 2019-12-24 17:37 | Progress Notes ---
DATE: 12/24/2019 SUBJECTIVE: The patient is currently in the hospital, had been agitated at the shelter, staff could not control her. Currently, now noted to be more awake, alert. There were concerns about oversedation. Seroquel was lowered. She seems more awake now. Still somewhat impulsive, unpredictable, very confused, disoriented, having a hard time getting information from her, [id number] was therefore somewhat brief. I was able to speak with the staff who notes she has been generally calm. Medications were reviewed. Labs were reviewed. Vitals were reviewed. No side effects, no longer with oversedation. Per staff, she has been sleeping okay, resting comfortably, not kidding. MENTAL STATUS EXAMINATION: Awake, alert, very confused, disoriented, unable to give me much information, unable to tell me her name, does not why she is in the hospital. No overt SI or HI. She is not combative right now. DIAGNOSIS: Likely dementia. ASSESSMENT: A 74-year-old female coming from a shelter. Disoriented, disengaged, had been somewhat combative, but now seemingly calmer. Concerns for medication side effects, some resolution. PLAN: We will continue to monitor. Continue dosing of Seroquel. Continue to monitor for any behavioral disturbances. Coordinate care with nursing staff regarding also a safe discharge plan. JOB# [id number]
[2019-12-24] MEDS: Magnesium Hydroxide (MOM) 30 mL UDC PO SCH (20:45)
--- NOTE | 2019-12-25 13:48 | Internal Medicine Prog Note ---
Internal Medicine Subjective - Subjective Service Date: 12/25/19 Patient seen and examined:: without staff Patient is:: verbal, interactive Per staff patient has:: no adverse event, no episodes of fall Internal Medicine Objective - Results Recent Labs: Laboratory Last Values POC Glucose 94 MG/DL (70 - 105) 12/24/19 06:29 - Physical Exam Vitals and I&O: Vital Signs Temp 97.5 F 12/25/19 06:21 Pulse 92 12/25/19 08:22 Resp 19 12/25/19 06:21 BP 155/90 12/25/19 08:22 Pulse Ox 93 12/25/19 06:21 Intake & Output 12/24/19 12/25/19 12/25/19 18:59 06:59 18:59 Intake Total 800 420 Balance 800 420 Intake: Oral 800 420 Other: # Voids 3 3 # Bowel Movements 2 0 Active Medications: Current Medications Acetaminophen (Tylenol) 650 mg PO Q4H PRN PRN Reason: Pain (Mild 1-3) Stop: 02/17/20 02:33 Albuterol Sulfate (Albuterol 2.5mg/3ml Neb Ud) 2.5 mg HHN Q4HRT PRN PRN Reason: Shortness of Breath Stop: 02/16/20 20:24 Last Admin: 12/20/19 14:35 Dose: 2.5 mg Divalproex Sodium (Depakote Dr) 125 mg PO BID [facility]; Protocol Stop: 02/19/20 16:59 Last Admin: 12/25/19 08:23 Dose: 125 mg Lorazepam (Ativan) 0.5 mg PO Q4HR PRN; Protocol PRN Reason: Anxiety Stop: 01/18/20 02:33 Last Admin: 12/24/19 03:58 Dose: 0.5 mg Magnesium Hydroxide (Milk Of Magnesia) 30 ml PO HS GERARDO Stop: 02/17/20 20:59 Last Admin: 12/24/19 20:45 Dose: 30 ml Metoprolol Tartrate (Lopressor) 50 mg PO BID GERARDO Stop: 02/17/20 08:59 Last Admin: 12/25/19 08:22 Dose: 50 mg Risperidone (Risperdal) 0.25 mg PO BID GERARDO; Protocol Stop: 02/19/20 16:59 Last Admin: 12/25/19 08:23 Dose: 0.25 mg Senna (Senna) 8.6 mg PO BID GERARDO Stop: 02/17/20 08:59 Last Admin: 12/25/19 08:23 Dose: 8.6 mg Zolpidem Tartrate (Ambien) 5 mg PO HS PRN PRN Reason: Insomnia Stop: 02/17/20 02:33 Last Admin: 12/24/19 20:46 Dose: 5 mg General: NAD HEENT: NC/AT Neck: Supple Lungs: CTAB Cardiovascular: RRR Abdomen: soft Neurological: alert Internal Medicine Assmt/Plan - Assessment Assessment: 1. s/p pneumonia 2. Tachycardia 3. COPD 4. DM s/p hypoglycemia - Plan Plan: continue nebulizers prn patient is more awake continue metoprolol 50 po bid continue blood sugar check while holding glipizide d/w r.n. Nutritional Asmnt/Malnutr-PDOC - Dietary Evaluation Malnutrition Findings (Please click <Entered> for more info): Nutritional Asmnt/Malnutrition Start: 12/21/19 16: 43 Text: Status: Complete Freq: Protocol: Document 12/21/19 16:43 CHARLES (Rec: 12/21/19 16:45 [email or web address] [id number]) Nutritional Asmnt/Malnutrition Patient General Information Nutritional Screening Moderate Risk Diagnosis Psychosis Pertinent Medical Hx/Surgical Hx COPD, Tachycardia, HTN, Dementia Subjective Information Pt is a 74-year-old female re- admitted on 12/17 d/t medical clearance at [facility] and confusion, yelling, and difficulty controlling behaviors. Pt is eating an estimated 40% of meals since re-admittance (x2 days) Per Meal/Nutrition Activity Record. Dietary is currently providing an estimated 1800 kcals and 110 gm Pro, per Pt PO intake this is providing an estimated 700 kcals and 45gm Pro to meet 41% kcal and 70% Pro needs- inadequate. Visited pt in afternoon, pt was able to answer simple questions. Answered questions, but also added nonsensicle words. Pt Nurse Jacquelyn thought maybe pt is a little exhausted when trying to eat as she has breathing difficulties, let her know I will provide Glucerna during snack times to help meet kcal needs and it may alleviate the energy of chewing during BLD. Offered pt a Glucerna shake and she accepted, stated chocolate when given a choice of flavor. Adding Glucerna BID at snack time to increase kcal intake. Anthropometrics HT: 57 WT: 184 LB (83.64 kg) ABW: 147 LB (66.93 kg) BMI: 28.82 (Overweight) GI/ Skin Integrity GI: WNL, Soft, Non-tender, Round BM: Not Noted I/O: 790/Not Noted Skin: Intact, Bruises Aamir: 15 Diet Order: [facility] 60 Estimated Energy Needs: ( Geriatric, ABW) 0131-3344 kcals (25-30 kcals/ kg) 65-80g Pro (1.0-1.2 g/kg) 1802-9993 ml (25-30 ml/kg) Current Diet Order/ [facility] Pertinent Medications Albuterol (PRN), Glucotrol, MOM (PRN), Senna Pertinent Labs 12/18: HDL 38, A1C 6.3% Nutritional Hx/Data Height 1.7 m Height (Calculated Centimeters) 170.2 Current Weight (lbs) 83.461 kg Weight (Calculated Kilograms) 83.5 Weight (Calculated Grams) 12427.0 [place] Body Weight 135 LB (61.36 kg) % [place] Body Weight 136 Body Mass Index (BMI) 28.8 Weight Status Overweight GI Symptoms Last BM Not Noted Skin Integrity/Comment: Skin: Intact, Bruises Aamir: 15 Nutritional Problem 2. Problem Problem Impaired nutrient utilization Etiology r/t endocrine dysfunction Signs/Symptoms: aeb labs (12/18) A1C 6.3%. 1. Problem Problem Inadequate energy intake Etiology r/t possible exhaustion from breathing issues Signs/Symptoms: aeb nurse report and PO intake 40% since re-admittance (x2 days). Intervention/Recommendation Comments 1.Continue CCHO 60gm diet as tolerated. 2.Add Glucerna BID at snack times (completed). Expected Outcomes/Goals Expected Outcomes/Goals 1.PO intake to meet 75% of estimated nutritional needs. 2.Monitor PO intake, wt, nutrition related labs, and skin integrity. 3.F/U as moderate risk in 3-5 days, 12/23-12/25.
--- NOTE | 2019-12-25 19:40 | Progress Notes ---
DATE: 12/25/2019 SUBJECTIVE: A 74-year-old female, more awake, interactive, making some bizarre statements, very confused "you are not my doctor." When I approached her, I showed her my badge and then she states "okay, I guess you are a doctor, then asks if she ever goes to a doctor, I might going to be the one that she has to see." The patient, disoriented, disengaged and distracted. She is sometimes unruly, loud, but generally calmer, not as aggressive, not trying to hit anybody. Fair sleep and appetite, certainly more redirectable. Medications were reviewed. Labs were reviewed. Vitals were reviewed. No overt side effects. No longer with any overt sedation. MENTAL STATUS EXAMINATION: Stated age. Fair eye contact, more awake, alert, very confused, disoriented, still somewhat impulsive, loud at times. DIAGNOSES: Dementia, dementia with behaviors; mood, unspecified; anxiety, unspecified. ASSESSMENT: A 74-year-old female who was unruly at the [facility], seems to be calmer, more awake, alert, more redirectable. PLAN: We will continue inpatient monitoring. The patient is improving. We will attempt to coordinate care with social media senior associate regarding a safe discharge plan. The patient likely approaching her baseline. JOB# [id number]
[2019-12-25] MEDS: Magnesium Hydroxide (MOM) 30 mL UDC PO SCH (21:15)
--- NOTE | 2019-12-26 12:07 | Progress Notes ---
DATE: 12/26/2019 SUBJECTIVE: The patient in the hospital, calm, quite, generally more cooperative, more appropriate, more redirectable, limited [id number], staff noting she does have some periods of agitation, yelling, screaming, wants to attend a democrat, disoriented. When I see her during the day, she is generally pretty calm, no overt agitation or escalation of behaviors. Currently on dosing of Risperdal seems to be tolerating this dose pretty well, has some breakthrough symptoms. ASSESSMENT: The patient is improving, generally calmer, more cooperative. Medications were reviewed. Vitals were reviewed. Labs were reviewed. Blood pressure 118/56, pulse of 65. PLAN: We will continue to redirect, ongoing symptoms was noted. JOB# [id number]
--- NOTE | 2019-12-26 15:38 | Internal Medicine Prog Note ---
Internal Medicine Subjective - Subjective Service Date: 12/26/19 Patient is:: verbal, interactive Per staff patient has:: no adverse event, no episodes of fall Internal Medicine Objective - Results Recent Labs: Laboratory Last Values POC Glucose 195 MG/DL (70 - 105) H 12/25/19 20:01 - Physical Exam Vitals and I&O: Vital Signs Temp 97.6 F 12/26/19 14:00 Pulse 96 12/26/19 14:00 Resp 20 12/26/19 14:00 BP 128/71 12/26/19 14:00 Pulse Ox 96 12/26/19 14:00 Intake & Output 12/25/19 12/26/19 12/26/19 18:59 06:59 18:59 Intake Total 1000 360 Output Total 1 Balance 1000 359 Intake: Oral 1000 360 Output: Urine/Stool Mix 1 Other: # Voids 4 2 # Bowel Movements 1 1 Active Medications: Current Medications Acetaminophen (Tylenol) 650 mg PO Q4H PRN PRN Reason: Pain (Mild 1-3) Stop: 02/17/20 02:33 Albuterol Sulfate (Albuterol 2.5mg/3ml Neb Ud) 2.5 mg HHN Q4HRT PRN PRN Reason: Shortness of Breath Stop: 02/16/20 20:24 Last Admin: 12/20/19 14:35 Dose: 2.5 mg Divalproex Sodium (Depakote Dr) 125 mg PO BID [facility]; Protocol Stop: 02/19/20 16:59 Last Admin: 12/26/19 08:30 Dose: 125 mg Lorazepam (Ativan) 0.5 mg PO Q4HR PRN; Protocol PRN Reason: Anxiety Stop: 01/18/20 02:33 Last Admin: 12/26/19 08:30 Dose: 0.5 mg Magnesium Hydroxide (Milk Of Magnesia) 30 ml PO HS GERARDO Stop: 02/17/20 20:59 Last Admin: 12/25/19 21:15 Dose: Not Given Metoprolol Tartrate (Lopressor) 50 mg PO BID GERARDO Stop: 02/17/20 08:59 Last Admin: 12/26/19 08:32 Dose: Not Given Risperidone (Risperdal) 0.25 mg PO BID [facility]; Protocol Stop: 02/19/20 16:59 Last Admin: 12/26/19 08:33 Dose: 0.25 mg Senna (Senna) 8.6 mg PO BID [facility]O Stop: 02/17/20 08:59 Last Admin: 12/26/19 08:33 Dose: 8.6 mg Zolpidem Tartrate (Ambien) 5 mg PO HS PRN PRN Reason: Insomnia Stop: 02/17/20 02:33 Last Admin: 12/24/19 20:46 Dose: 5 mg General: NAD HEENT: NC/AT Neck: Supple Lungs: CTAB Cardiovascular: RRR Abdomen: soft Neurological: alert Internal Medicine Assmt/Plan - Assessment Assessment: 1. s/p pneumonia 2. Tachycardia 3. COPD 4. DM s/p hypoglycemia - Plan Plan: continue nebulizers prn patient is more awake continue metoprolol 50 po bid patient's blood sugar is elevated at 195. d/w r.n. Nutritional Asmnt/Malnutr-PDOC - Dietary Evaluation Malnutrition Findings (Please click <Entered> for more info): Nutritional Asmnt/Malnutrition Start: 12/21/19 16: 43 Text: Status: Complete Freq: Protocol: Document 12/21/19 16:43 CHARLES (Rec: 12/21/19 16:45 CHARLES [id number]) Nutritional Asmnt/Malnutrition Patient General Information Nutritional Screening Moderate Risk Diagnosis Psychosis Pertinent Medical Hx/Surgical Hx COPD, Tachycardia, HTN, Dementia Subjective Information Pt is a 74-year-old female re- admitted on 12/17 d/t medical clearance at [facility] and confusion, yelling, and difficulty controlling behaviors. Pt is eating an estimated 40% of meals since re-admittance (x2 days) Per Meal/Nutrition Activity Record. Dietary is currently providing an estimated 1800 kcals and 110 gm Pro, per Pt PO intake this is providing an estimated 700 kcals and 45gm Pro to meet 41% kcal and 70% Pro needs- inadequate. Visited pt in afternoon, pt was able to answer simple questions. Answered questions, but also added nonsensicle words. Pt Nurse Jacquelyn thought maybe pt is a little exhausted when trying to eat as she has breathing difficulties, let her know I will provide Glucerna during snack times to help meet kcal needs and it may alleviate the energy of chewing during BLD. Offered pt a Glucerna shake and she accepted, stated chocolate when given a choice of flavor. Adding Glucerna BID at snack time to increase kcal intake. Anthropometrics HT: 57 WT: 184 LB (83.64 kg) ABW: 147 LB (66.93 kg) BMI: 28.82 (Overweight) GI/ Skin Integrity GI: WNL, Soft, Non-tender, Round BM: Not Noted I/O: 790/Not Noted Skin: Intact, Bruises Aamir: 15 Diet Order: [facility] 60 Estimated Energy Needs: ( Geriatric, ABW) 7284-4011 kcals (25-30 kcals/ kg) 65-80g Pro (1.0-1.2 g/kg) 6085-1349 ml (25-30 ml/kg) Current Diet Order/ Nutrition Support [facility] 60 Pertinent Medications Albuterol (PRN), Glucotrol, MOM (PRN), Senna Pertinent Labs 12/18: HDL 38, A1C 6.3% Nutritional Hx/Data Height 1.7 m Height (Calculated Centimeters) 170.2 Current Weight (lbs) 83.461 kg Weight (Calculated Kilograms) 83.5 Weight (Calculated Grams) 92827.0 [place] Body Weight 135 LB (61.36 kg) % [place] Body Weight 136 Body Mass Index (BMI) 28.8 Weight Status Overweight GI Symptoms Last BM Not Noted Skin Integrity/Comment: Skin: Intact, Bruises Aamir: 15 Nutritional Problem 2. Problem Problem Impaired nutrient utilization Etiology r/t endocrine dysfunction Signs/Symptoms: aeb labs (12/18) A1C 6.3%. 1. Problem Problem Inadequate energy intake Etiology r/t possible exhaustion from breathing issues Signs/Symptoms: aeb nurse report and PO intake 40% since re-admittance (x2 days). Intervention/Recommendation Comments 1.Continue CCHO 60gm diet as tolerated. 2.Add Glucerna BID at snack times (completed). Expected Outcomes/Goals Expected Outcomes/Goals 1.PO intake to meet 75% of estimated nutritional needs. 2.Monitor PO intake, wt, nutrition related labs, and skin integrity. 3.F/U as moderate risk in 3-5 days, 12/23-12/25.
[2019-12-26] MEDS: Magnesium Hydroxide (MOM) 30 mL UDC PO SCH (20:19)
--- NOTE | 2019-12-27 13:23 | Progress Notes ---
DATE: 12/27/2019 SUBJECTIVE: This is a 74-year-old female, currently in the hospital just repeating "come here, come here," "I don't listen to you" " I' don't listen to you", acting really strange, bizarre. I spent some time with the patient trying to get information out of her, but it is very difficult. She is just ruminative, repeating herself, yelling, screaming, at times agitated, very impulsive, unpredictable, calling people to come next to her all the time. Staff having a hard time controlling her behaviors. Seems that she is more awake. Currently on dosing of Risperdal. I attempted to increase the dose recently, but it caused her to be oversedated. Blood pressure 134/79, pulse of 81. MENTAL STATUS EXAMINATION: Stated age. Fair eye contact, remains impulsive, highly unpredictable. PLAN: I will continue inpatient monitoring. I will be increasing dosing of Risperdal slowly and conservatively. Complex case, hard to control symptoms. JOB# [id number]
--- NOTE | 2019-12-27 14:02 | Internal Medicine Prog Note ---
Internal Medicine Subjective - Subjective Service Date: 12/27/19 Patient is:: verbal, interactive Per staff patient has:: no adverse event, no episodes of fall Internal Medicine Objective - Results Recent Labs: Laboratory Last Values POC Glucose 136 MG/DL (70 - 105) H 12/27/19 04:05 - Physical Exam Vitals and I&O: Vital Signs Temp 98.1 F 12/27/19 06:14 Pulse 104 12/27/19 08:29 Resp 20 12/27/19 07:40 BP 144/78 12/27/19 08:29 Pulse Ox 95 12/27/19 06:14 Intake & Output 12/26/19 12/27/19 12/27/19 18:59 06:59 18:59 Intake Total 1000 120 Balance 1000 120 Intake: Oral 760 120 Other 240 Other: # Voids 3 3 # Bowel Movements 1 0 Active Medications: Current Medications Acetaminophen (Tylenol) 650 mg PO Q4H PRN PRN Reason: Pain (Mild 1-3) Stop: 02/17/20 02:33 Albuterol Sulfate (Albuterol 2.5mg/3ml Neb Ud) 2.5 mg HHN Q4HRT PRN PRN Reason: Shortness of Breath Stop: 02/16/20 20:24 Last Admin: 12/20/19 14:35 Dose: 2.5 mg Divalproex Sodium (Depakote Dr) 125 mg PO BID G[facility]O; Protocol Stop: 02/19/20 16:59 Last Admin: 12/27/19 08:28 Dose: 125 mg Lorazepam (Ativan) 0.5 mg PO Q4HR PRN; Protocol PRN Reason: Anxiety Stop: 01/18/20 02:33 Last Admin: 12/27/19 08:29 Dose: 0.5 mg Magnesium Hydroxide (Milk Of Magnesia) 30 ml PO HS GERARDO Stop: 02/17/20 20:59 Last Admin: 12/26/19 20:19 Dose: 30 ml Metoprolol Tartrate (Lopressor) 50 mg PO BID GERARDO Stop: 02/17/20 08:59 Last Admin: 12/27/19 08:29 Dose: 50 mg Risperidone (Risperdal) 0.25 mg PO DAILY GERARDO; Protocol Stop: 02/26/20 08:59 Risperidone (Risperdal) 0.5 mg PO HS GERARDO; Protocol Stop: 02/25/20 20:59 Senna (Senna) 8.6 mg PO BID GERARDO Stop: 02/17/20 08:59 Last Admin: 12/27/19 08:29 Dose: 8.6 mg Zolpidem Tartrate (Ambien) 5 mg PO HS PRN PRN Reason: Insomnia Stop: 02/17/20 02:33 Last Admin: 12/24/19 20:46 Dose: 5 mg General: NAD HEENT: NC/AT Neck: Supple Lungs: CTAB Cardiovascular: RRR Abdomen: soft Neurological: alert Internal Medicine Assmt/Plan - Assessment Assessment: 1. s/p pneumonia 2. Tachycardia 3. COPD 4. DM s/p hypoglycemia - Plan Plan: continue nebulizers prn for COPD continue monitoring blood sugars off glipizide no further hypoglycemia noted tachycardia is controlled with b- valdemar d/w r.n. Nutritional Asmnt/Malnutr-PDOC - Dietary Evaluation Malnutrition Findings (Please click <Entered> for more info): Nutritional Asmnt/Malnutrition Start: 12/21/19 16: 43 Text: Status: Complete Freq: Protocol: Document 12/21/19 16:43 CHARLES (Rec: 12/21/19 16:45 CHARLES [id number]) Nutritional Asmnt/Malnutrition Patient General Information Nutritional Screening Moderate Risk Diagnosis Psychosis Pertinent Medical Hx/Surgical Hx COPD, Tachycardia, HTN, Dementia Subjective Information Pt is a 74-year-old female re- admitted on 12/17 d/t medical clearance at [facility] and confusion, yelling, and difficulty controlling behaviors. Pt is eating an estimated 40% of meals since re-admittance (x2 days) Per Meal/Nutrition Activity Record. Dietary is currently providing an estimated 1800 kcals and 110 gm Pro, per Pt PO intake this is providing an estimated 700 kcals and 45gm Pro to meet 41% kcal and 70% Pro needs- inadequate. Visited pt in afternoon, pt was able to answer simple questions. Answered questions, but also added nonsensicle words. Pt Nurse Jacquelyn thought maybe pt is a little exhausted when trying to eat as she has breathing difficulties, let her know I will provide Glucerna during snack times to help meet kcal needs and it may alleviate the energy of chewing during BLD. Offered pt a Glucerna shake and she accepted, stated chocolate when given a choice of flavor. Adding Glucerna BID at snack time to increase kcal intake. Anthropometrics HT: 57 WT: 184 LB (83.64 kg) ABW: 147 LB (66.93 kg) BMI: 28.82 (Overweight) GI/ Skin Integrity GI: WNL, Soft, Non-tender, Round BM: Not Noted I/O: 790/Not Noted Skin: Intact, Bruises Aamir: 15 [facility] Estimated Energy Needs: ( Geriatric, ABW) 8542-3702 kcals (25-30 kcals/ kg) 65-80g Pro (1.0-1.2 g/kg) 7011-5001 ml (25-30 ml/kg) Current Diet Order/ Nutrition Support [facility] 60 Pertinent Medications Albuterol (PRN), Glucotrol, MOM (PRN), Senna Pertinent Labs 12/18: HDL 38, A1C 6.3% Nutritional Hx/Data Height 1.7 m Height (Calculated Centimeters) 170.2 Current Weight (lbs) 83.461 kg Weight (Calculated Kilograms) 83.5 Weight (Calculated Grams) 41403.0 [place] Body Weight 135 LB (61.36 kg) % [place] Body Weight 136 Body Mass Index (BMI) 28.8 Weight Status Overweight GI Symptoms Last BM Not Noted Skin Integrity/Comment: Skin: Intact, Bruises Aamir: 15 Nutritional Problem 2. Problem Problem Impaired nutrient utilization Etiology r/t endocrine dysfunction Signs/Symptoms: aeb labs (12/18) A1C 6.3%. 1. Problem Problem Inadequate energy intake Etiology r/t possible exhaustion from breathing issues Signs/Symptoms: aeb nurse report and PO intake 40% since re-admittance (x2 days). Intervention/Recommendation Comments 1.Continue CCHO 60gm diet as tolerated. 2.Add Glucerna BID at snack times (completed). Expected Outcomes/Goals Expected Outcomes/Goals 1.PO intake to meet 75% of estimated nutritional needs. 2.Monitor PO intake, wt, nutrition related labs, and skin integrity. 3.F/U as moderate risk in 3-5 days, /-12/25.
[2019-12-27] MEDS: Magnesium Hydroxide (MOM) 30 mL UDC PO SCH (20:13)
--- NOTE | 2019-12-28 14:15 | Internal Medicine Prog Note ---
Internal Medicine Subjective - Subjective Service Date: 12/28/19 Patient seen and examined:: without staff Patient is:: verbal, interactive Per staff patient has:: no adverse event, no episodes of fall Internal Medicine Objective - Results Recent Labs: Laboratory Last Values POC Glucose 136 MG/DL (70 - 105) H 12/27/19 04:05 - Physical Exam Vitals and I&O: Vital Signs Temp 98.1 F 12/28/19 06:21 Pulse 113 12/28/19 09:53 Resp 20 12/28/19 06:21 BP 135/89 12/28/19 09:53 Pulse Ox 97 12/28/19 06:21 Intake & Output 12/27/19 12/28/19 12/28/19 18:59 06:59 18:59 Intake Total 960 120 Balance 960 120 Intake: Oral 960 120 Other: # Voids 3 1 # Bowel Movements 1 0 Active Medications: Current Medications Acetaminophen (Tylenol) 650 mg PO Q4H PRN PRN Reason: Pain (Mild 1-3) Stop: 02/17/20 02:33 Albuterol Sulfate (Albuterol 2.5mg/3ml Neb Ud) 2.5 mg HHN Q4HRT PRN PRN Reason: Shortness of Breath Stop: 02/16/20 20:24 Last Admin: 12/20/19 14:35 Dose: 2.5 mg Divalproex Sodium (Depakote Dr) 125 mg PO BID GERARDO; Protocol Stop: 02/19/20 16:59 Last Admin: 12/28/19 09:44 Dose: 125 mg Lorazepam (Ativan) 0.5 mg PO Q4HR PRN; Protocol PRN Reason: Anxiety Stop: 01/18/20 02:33 Last Admin: 12/27/19 08:29 Dose: 0.5 mg Magnesium Hydroxide (Milk Of Magnesia) 30 ml PO HS GERARDO Stop: 02/17/20 20:59 Last Admin: 12/27/19 20:13 Dose: 30 ml Metoprolol Tartrate (Lopressor) 50 mg PO BID GERARDO Stop: 02/17/20 08:59 Last Admin: 12/28/19 09:53 Dose: 50 mg Risperidone (Risperdal) 0.25 mg PO DAILY GERARDO; Protocol Stop: 02/26/20 08:59 Last Admin: 12/28/19 09:44 Dose: 0.25 mg Risperidone (Risperdal) 0.5 mg PO HS GERARDO; Protocol Stop: 02/25/20 20:59 Last Admin: 12/27/19 20:13 Dose: 0.5 mg Senna (Senna) 8.6 mg PO BID GERARDO Stop: 02/17/20 08:59 Last Admin: 12/28/19 09:44 Dose: 8.6 mg Zolpidem Tartrate (Ambien) 5 mg PO HS PRN PRN Reason: Insomnia Stop: 02/17/20 02:33 Last Admin: 12/24/19 20:46 Dose: 5 mg General: NAD HEENT: NC/AT Neck: Supple Lungs: CTAB Cardiovascular: RRR Abdomen: soft Neurological: alert Internal Medicine Assmt/Plan - Assessment Assessment: 1. s/p pneumonia 2. Tachycardia 3. COPD 4. DM s/p hypoglycemia - Plan Plan: continue nebulizers prn for COPD continue b-blockers for tachycardia no need to adjust the dosage d/w r.n. Nutritional Asmnt/Malnutr-PDOC - Dietary Evaluation Malnutrition Findings (Please click <Entered> for more info): Nutritional Asmnt/Malnutrition Start: 12/21/19 16: 43 Text: Status: Complete Freq: Protocol: Document 12/21/19 16:43 CHARLES (Rec: 12/21/19 16:45 CHARLES [email or web address]) Nutritional Asmnt/Malnutrition Patient General Information Nutritional Screening Moderate Risk Diagnosis Psychosis Pertinent Medical Hx/Surgical Hx COPD, Tachycardia, HTN, Dementia Subjective Information Pt is a 74-year-old female re- admitted on 12/17 d/t medical clearance at [facility] and confusion, yelling, and difficulty controlling behaviors. Pt is eating an estimated 40% of meals since re-admittance (x2 days) Per Meal/Nutrition Activity Record. Dietary is currently providing an estimated 1800 kcals and 110 gm Pro, per Pt PO intake this is providing an estimated 700 kcals and 45gm Pro to meet 41% kcal and 70% Pro needs- inadequate. Visited pt in afternoon, pt was able to answer simple questions. Answered questions, but also added nonsensicle words. Pt Nurse Jacquelyn thought maybe pt is a little exhausted when trying to eat as she has breathing difficulties, let her know I will provide Glucerna during snack times to help meet kcal needs and it may alleviate the energy of chewing during BLD. Offered pt a Glucerna shake and she accepted, stated chocolate when given a choice of flavor. Adding Glucerna BID at snack time to increase kcal intake. Anthropometrics HT: 57 WT: 184 LB (83.64 kg) ABW: 147 LB (66.93 kg) BMI: 28.82 (Overweight) GI/ Skin Integrity GI: WNL, Soft, Non-tender, Round BM: Not Noted I/O: 790/Not Noted Skin: Intact, Bruises Aamir: 15 Diet Order: [facility] 60 Estimated Energy Needs: ( Geriatric, ABW) 9258-7804 kcals (25-30 kcals/ kg) 65-80g Pro (1.0-1.2 g/kg) 2711-5934 ml (25-30 ml/kg) Current Diet Order/ [facility] Pertinent Medications Albuterol (PRN), Glucotrol, MOM (PRN), Senna Pertinent Labs 12/18: HDL 38, A1C 6.3% Nutritional Hx/Data Height 1.7 m Height (Calculated Centimeters) 170.2 Current Weight (lbs) 83.461 kg Weight (Calculated Kilograms) 83.5 Weight (Calculated Grams) 34593.0 [place] Body Weight 135 LB (61.36 kg) % [place] Body Weight 136 Body Mass Index (BMI) 28.8 Weight Status Overweight GI Symptoms Last BM Not Noted Skin Integrity/Comment: Skin: Intact, Bruises Aamir: 15 Nutritional Problem 2. Problem Problem Impaired nutrient utilization Etiology r/t endocrine dysfunction Signs/Symptoms: aeb labs (12/18) A1C 6.3%. 1. Problem Problem Inadequate energy intake Etiology r/t possible exhaustion from breathing issues Signs/Symptoms: aeb nurse report and PO intake 40% since re-admittance (x2 days). Intervention/Recommendation Comments 1.Continue CCHO 60gm diet as tolerated. 2.Add Glucerna BID at snack times (completed). Expected Outcomes/Goals Expected Outcomes/Goals 1.PO intake to meet 75% of estimated nutritional needs. 2.Monitor PO intake, wt, nutrition related labs, and skin integrity. 3.F/U as moderate risk in 3-5 days, /3-/5.
--- NOTE | 2019-12-28 20:27 | Progress Notes ---
DATE: 12/28/2019 Case was discussed with staff of the patient, reviewed records. This is a 74-year-old male who was admitted on 12/18/2019 because of confusion, disoriented, yelling and screaming, difficult to control her behavior. The patient is confused, unable to make safe plan for self-care. She was hospitalized here recently. She is quite demented with probable history of bipolar disorder. The patient continues to be unpredictable, impulsive, internally preoccupied, acting bizarre, strange, unable to give much information, ruminating about things, repeating herself, yelling and screaming at times very agitated, impulsive. ASSESSMENT: The patient continues to be psychotic, unpredictable, impulsive, internally preoccupied, demented, hard to redirect. No side effects with the medication, no sedation, no nausea, no extrapyramidal symptoms. She is on Depakote 125 mg twice a day, risperidone 0.25 mg twice a day that was changed to 0.5 mg at bedtime and 25 mg in the morning. We will continue the patient in group therapy, milieu therapy, and adjust the medication as needed. JOB# [id number]
[2019-12-28] MEDS: Magnesium Hydroxide (MOM) 30 mL UDC PO SCH (20:53)
--- NOTE | 2019-12-29 12:23 | Internal Medicine Prog Note ---
Internal Medicine Subjective - Subjective Service Date: 12/29/19 Patient is:: verbal, interactive Per staff patient has:: no adverse event, no episodes of fall Internal Medicine Objective - Results Recent Labs: Laboratory Last Values POC Glucose 134 MG/DL (70 - 105) H 12/29/19 11:42 - Physical Exam Vitals and I&O: Vital Signs Temp 97.3 F 12/29/19 06:35 Pulse 107 12/29/19 09:24 Resp 24 12/29/19 08:00 BP 170/83 12/29/19 09:24 Pulse Ox 95 12/29/19 06:35 Intake & Output 12/28/19 12/29/19 12/29/19 18:59 06:59 18:59 Intake Total 900 120 Balance 900 120 Intake: Oral 900 120 Other: # Voids 3 3 # Bowel Movements 1 Active Medications: Current Medications Acetaminophen (Tylenol) 650 mg PO Q4H PRN PRN Reason: Pain (Mild 1-3) Stop: 02/17/20 02:33 Albuterol Sulfate (Albuterol 2.5mg/3ml Neb Ud) 2.5 mg HHN Q4HRT PRN PRN Reason: Shortness of Breath Stop: 02/16/20 20:24 Last Admin: 12/20/19 14:35 Dose: 2.5 mg Divalproex Sodium (Depakote Dr) 125 mg PO BID GERARDO; Protocol Stop: 02/19/20 16:59 Last Admin: 12/29/19 09:24 Dose: 125 mg Lorazepam (Ativan) 0.5 mg PO Q4HR PRN; Protocol PRN Reason: Anxiety Stop: 01/18/20 02:33 Last Admin: 12/27/19 08:29 Dose: 0.5 mg Magnesium Hydroxide (Milk Of Magnesia) 30 ml PO HS GERARDO Stop: 02/17/20 20:59 Last Admin: 12/28/19 20:53 Dose: 30 ml Metoprolol Tartrate (Lopressor) 50 mg PO BID GERARDO Stop: 02/17/20 08:59 Last Admin: 12/29/19 09:24 Dose: 50 mg Risperidone (Risperdal) 0.25 mg PO DAILY GERARDO; Protocol Stop: 02/26/20 08:59 Last Admin: 12/29/19 09:23 Dose: 0.25 mg Risperidone (Risperdal) 0.5 mg PO HS GERARDO; Protocol Stop: 02/25/20 20:59 Last Admin: 12/28/19 20:54 Dose: 0.5 mg Senna (Senna) 8.6 mg PO BID GERARDO Stop: 02/17/20 08:59 Last Admin: 12/29/19 09:24 Dose: 8.6 mg Zolpidem Tartrate (Ambien) 5 mg PO HS PRN PRN Reason: Insomnia Stop: 02/17/20 02:33 Last Admin: 12/24/19 20:46 Dose: 5 mg General: NAD HEENT: NC/AT Neck: Supple Lungs: CTAB Cardiovascular: RRR Abdomen: soft Neurological: alert Internal Medicine Assmt/Plan - Assessment Assessment: 1. s/p pneumonia 2. Tachycardia 3. COPD 4. DM s/p hypoglycemia - Plan Plan: continue nebulizers prn for COPD continue b-blockers for tachycardia tachycardia is reasonably controlled d/w r.n. Nutritional Asmnt/Malnutr-PDOC - Dietary Evaluation Malnutrition Findings (Please click <Entered> for more info): Nutritional Asmnt/Malnutrition Start: 12/21/19 16: 43 Text: Status: Complete Freq: Protocol: Document 12/21/19 16:43 CHARLES (Rec: 12/21/19 16:45 CHARLES [email or web address]) Nutritional Asmnt/Malnutrition Patient General Information Nutritional Screening Moderate Risk Diagnosis Psychosis Pertinent Medical Hx/Surgical Hx COPD, Tachycardia, HTN, Dementia Subjective Information Pt is a 74-year-old female re- admitted on 12/17 d/t medical clearance at [facility] and confusion, yelling, and difficulty controlling behaviors. Pt is eating an estimated 40% of meals since re-admittance (x2 days) Per Meal/Nutrition Activity Record. Dietary is currently providing an estimated 1800 kcals and 110 gm Pro, per Pt PO intake this is providing an estimated 700 kcals and 45gm Pro to meet 41% kcal and 70% Pro needs- inadequate. Visited pt in afternoon, pt was able to answer simple questions. Answered questions, but also added nonsensicle words. Pt Nurse Jacquelyn thought maybe pt is a little exhausted when trying to eat as she has breathing difficulties, let her know I will provide Glucerna during snack times to help meet kcal needs and it may alleviate the energy of chewing during BLD. Offered pt a Glucerna shake and she accepted, stated chocolate when given a choice of flavor. Adding Glucerna BID at snack time to increase kcal intake. Anthropometrics HT: 57 WT: 184 LB (83.64 kg) ABW: 147 LB (66.93 kg) BMI: 28.82 (Overweight) GI/ Skin Integrity GI: WNL, Soft, Non-tender, Round BM: Not Noted I/O: 790/Not Noted Skin: Intact, Bruises Aamir: 15 Diet Order: [facility] 60 Estimated Energy Needs: ( Geriatric, ABW) 2034-2116 kcals (25-30 kcals/ kg) 65-80g Pro (1.0-1.2 g/kg) 2593-0613 ml (25-30 ml/kg) Current Diet Order/ [facility] Pertinent Medications Albuterol (PRN), Glucotrol, MOM (PRN), Senna Pertinent Labs 12/18: HDL 38, A1C 6.3% Nutritional Hx/Data Height 1.7 m Height (Calculated Centimeters) 170.2 Current Weight (lbs) 83.461 kg Weight (Calculated Kilograms) 83.5 Weight (Calculated Grams) 72090.0 [place] Body Weight 135 LB (61.36 kg) % [place] Body Weight 136 Body Mass Index (BMI) 28.8 Weight Status Overweight GI Symptoms Last BM Not Noted Skin Integrity/Comment: Skin: Intact, Bruises Aamir: 15 Nutritional Problem 2. Problem Problem Impaired nutrient utilization Etiology r/t endocrine dysfunction Signs/Symptoms: aeb labs (12/18) A1C 6.3%. 1. Problem Problem Inadequate energy intake Etiology r/t possible exhaustion from breathing issues Signs/Symptoms: aeb nurse report and PO intake 40% since re-admittance (x2 days). Intervention/Recommendation Comments 1.Continue CCHO 60gm diet as tolerated. 2.Add Glucerna BID at snack times (completed). Expected Outcomes/Goals Expected Outcomes/Goals 1.PO intake to meet 75% of estimated nutritional needs. 2.Monitor PO intake, wt, nutrition related labs, and skin integrity. 3.F/U as moderate risk in 3-5 days, 5/3-5/5.
[2019-12-29] MEDS: Magnesium Hydroxide (MOM) 30 mL UDC PO SCH (20:25)
--- NOTE | 2019-12-29 21:41 | Progress Notes ---
DATE: 12/29/[address] Gleason. Case was discussed with staff of the patient, reviewed records. The patient continues to stay in bed, continues to have episodes of yelling and screaming, unable to redirect at times. Unable to participate in meaningful conversation or make safe plan for self-care. She is demented with a history of bipolar disorder. Continues to be acting bizarre. She is incontinent of urine. She has a diaper on. MENTAL STATUS EXAMINATION: The patient is still internally preoccupied, acting bizarre, confused, unable to tell the date, ruminating about things, unable to make safe plan for self-care and hard to redirect at times. No side effects. ASSESSMENT: The patient continues to be psychotic, unpredictable, impulsive, demented, hard to redirect. No side effects with the medication, no sedation, no nausea, no extrapyramidal symptoms. We will continue the patient in group therapy, milieu therapy, and adjust medication as needed. JOB# [id number]
[2019-12-30] MEDS: Magnesium Hydroxide (MOM) 30 mL UDC PO SCH (20:56)
--- NOTE | 2019-12-30 21:16 | Psych Progress Note ---
Psych Progress Note - Intro Date of Progress Note: 12/30/19 - Assessment Assessment: Patient interviewed, case discussed with staff, chart and records reviewed. The patient continues to be labile and agitated. The patient was uncooperative with the interview. The patient is responding to internal stimuli. Per staff the patient yells out loud to her hallucinations. The patient is disheveled with no plan for self-care. She appears to be tolerating her medications well no side effects noted. - Vitals, I&O Vitals: Vital Signs - 24 hr 12/30/19 12/30/19 12/30/19 06:48 08:00 08:46 Temp 98.1 F HR 79 72 RR 18 24 BP 119/50 132/74 O2 Sat % 95 12/30/19 12/30/19 12/30/19 14:00 16:31 19:56 Temp 98.0 F 97.6 F HR 97 97 58 RR 20 20 BP 111/43 111/43 159/74 O2 Sat % 94 96 12/30/19 12/30/19 20:00 20:09 Temp 98.4 F HR 104 RR 19 20 BP 113/59 O2 Sat % 96 - Objective Psych General Appearance: Report: No acute distress Psych Behavior: Report: Alert, Uncooperative Psych Speech: Report: Mumbled Psych Mood: Report: Angry Psych Affect: Report: Labile Psych Thought Process: Report: Auditory, Paranoid Psych Cognition: Report: Confused Psych Insight: Report: Impaired Psych Judgement: Report: Impaired - Plan Plan: Continue current treatment plan, continue medications, continue to observe for behaviors. - Review of Relevant Data Review of Relevant Data: I have reviewed the following items and time anita (where applicable) has been applied. Psych Data Reviewed: Vitals - Medications Current Medications: Current Medications Acetaminophen (Tylenol) 650 mg PO Q4H PRN PRN Reason: Pain (Mild 1-3) Stop: 02/17/20 02:33 Last Admin: 12/30/19 03:28 Dose: 650 mg Albuterol Sulfate (Albuterol 2.5mg/3ml Neb Ud) 2.5 mg HHN Q4HRT PRN PRN Reason: Shortness of Breath Stop: 02/16/20 20:24 Last Admin: 12/20/19 14:35 Dose: 2.5 mg Divalproex Sodium (Depakote Dr) 125 mg PO BID [facility]; Protocol Stop: 02/19/20 16:59 Last Admin: 12/30/19 16:33 Dose: 125 mg Lorazepam (Ativan) 0.5 mg PO Q4HR PRN; Protocol PRN Reason: Anxiety Stop: 01/18/20 02:33 Last Admin: 12/27/19 08:29 Dose: 0.5 mg Magnesium Hydroxide (Milk Of Magnesia) 30 ml PO HS GERARDO Stop: 02/17/20 20:59 Last Admin: 12/30/19 20:56 Dose: 30 ml Metoprolol Tartrate (Lopressor) 50 mg PO BID GERARDO Stop: 02/17/20 08:59 Last Admin: 12/30/19 16:31 Dose: 50 mg Risperidone (Risperdal) 0.25 mg PO DAILY GERARDO; Protocol Stop: 02/26/20 08:59 Last Admin: 12/30/19 08:48 Dose: 0.25 mg Risperidone (Risperdal) 0.5 mg PO HS GERARDO; Protocol Stop: 02/25/20 20:59 Last Admin: 12/30/19 20:56 Dose: 0.5 mg Senna (Senna) 8.6 mg PO BID GERARDO Stop: 02/17/20 08:59 Last Admin: 12/30/19 16:31 Dose: 8.6 mg Zolpidem Tartrate (Ambien) 5 mg PO HS PRN PRN Reason: Insomnia Stop: 02/17/20 02:33 Last Admin: 12/30/19 20:59 Dose: 5 mg
--- NOTE | 2019-12-31 19:13 | Psych Progress Note ---
Psych Progress Note - Intro Date of Progress Note: 12/31/19 - Assessment Assessment: Patient interviewed, case discussed with staff, chart and records reviewed. The patient continues to be labile and agitated. The patient was uncooperative with the interview. The patient is responding to internal stimuli. The patient is disheveled with no plan for self-care. She appears to be tolerating her medications well no side effects noted. - Vitals, I&O Vitals: Vital Signs - 24 hr 12/30/19 12/30/19 12/30/19 19:56 20:00 20:09 Temp 97.6 F 98.4 F HR 58 104 RR 20 19 20 BP 159/74 113/59 O2 Sat % 96 96 12/31/19 12/31/19 12/31/19 06:25 08:00 08:39 Temp 98.2 F HR 109 123 123 RR 19 20 BP 140/84 128/80 128/80 O2 Sat % 93 93 12/31/19 12/31/19 14:00 17:25 Temp 98.2 F HR 92 92 RR 20 BP 147/68 147/68 O2 Sat % 94 - Objective Psych General Appearance: Report: No acute distress Psych Behavior: Report: Alert, Uncooperative Psych Speech: Report: Mumbled Psych Mood: Report: Angry Psych Affect: Report: Labile Psych Thought Process: Report: Auditory, Paranoid Psych Cognition: Report: Confused Psych Insight: Report: Impaired Psych Judgement: Report: Impaired - Plan Plan: Continue current treatment plan, continue medications, continue to observe for behaviors. - Review of Relevant Data Review of Relevant Data: I have reviewed the following items and time anita (where applicable) has been applied. - Medications Current Medications: Current Medications Acetaminophen (Tylenol) 650 mg PO Q4H PRN PRN Reason: Pain (Mild 1-3) Stop: 02/17/20 02:33 Last Admin: 12/30/19 03:28 Dose: 650 mg Albuterol Sulfate (Albuterol 2.5mg/3ml Neb Ud) 2.5 mg HHN Q4HRT PRN PRN Reason: Shortness of Breath Stop: 02/16/20 20:24 Last Admin: 12/20/19 14:35 Dose: 2.5 mg Divalproex Sodium (Depakote Dr) 125 mg PO BID GERARDO; Protocol Stop: 02/19/20 16:59 Last Admin: 12/31/19 17:24 Dose: 125 mg Lorazepam (Ativan) 0.5 mg PO Q4HR PRN; Protocol PRN Reason: Anxiety Stop: 01/18/20 02:33 Last Admin: 12/27/19 08:29 Dose: 0.5 mg Magnesium Hydroxide (Milk Of Magnesia) 30 ml PO HS GERARDO Stop: 02/17/20 20:59 Last Admin: 12/30/19 20:56 Dose: 30 ml Metoprolol Tartrate (Lopressor) 50 mg PO BID GERARDO Stop: 02/17/20 08:59 Last Admin: 12/31/19 17:25 Dose: 50 mg Risperidone (Risperdal) 0.25 mg PO DAILY GERARDO; Protocol Stop: 02/26/20 08:59 Last Admin: 12/31/19 08:39 Dose: 0.25 mg Risperidone (Risperdal) 0.5 mg PO HS GERARDO; Protocol Stop: 02/25/20 20:59 Last Admin: 12/30/19 20:56 Dose: 0.5 mg Senna (Senna) 8.6 mg PO BID GERARDO Stop: 02/17/20 08:59 Last Admin: 12/31/19 17:24 Dose: 8.6 mg Zolpidem Tartrate (Ambien) 5 mg PO HS PRN PRN Reason: Insomnia Stop: 02/17/20 02:33 Last Admin: 12/30/19 20:59 Dose: 5 mg
[2019-12-31] MEDS: Magnesium Hydroxide (MOM) 30 mL UDC PO SCH (20:43)
--- NOTE | 2020-01-01 11:14 | Internal Medicine Prog Note ---
Internal Medicine Subjective - Subjective Service Date: 01/01/20 Patient seen and examined:: without staff Patient is:: verbal, interactive, confused Per staff patient has:: no adverse event, no episodes of fall Internal Medicine Objective - Results Recent Labs: Laboratory Last Values POC Glucose 129 MG/DL (70 - 105) H 12/30/19 17:08 - Physical Exam Vitals and I&O: Vital Signs Temp 98.9 F 01/01/20 06:16 Pulse 98 01/01/20 08:15 Resp 18 01/01/20 08:00 BP 119/78 01/01/20 08:15 Pulse Ox 92 01/01/20 06:16 Intake & Output 12/31/19 01/01/20 01/01/20 18:59 06:59 18:59 Intake Total 950 540 Output Total 2 Balance 950 538 Intake: Oral 950 540 Output: Urine/Stool Mix 2 Other: # Voids 1 # Bowel Movements 1 0 Active Medications: Current Medications Acetaminophen (Tylenol) 650 mg PO Q4H PRN PRN Reason: Pain (Mild 1-3) Stop: 02/17/20 02:33 Last Admin: 01/01/20 05:27 Dose: 650 mg Albuterol Sulfate (Albuterol 2.5mg/3ml Neb Ud) 2.5 mg HHN Q4HRT PRN PRN Reason: Shortness of Breath Stop: 02/16/20 20:24 Last Admin: 12/20/19 14:35 Dose: 2.5 mg Divalproex Sodium (Depakote Dr) 125 mg PO BID GERARDO; Protocol Stop: 02/19/20 16:59 Last Admin: 01/01/20 08:15 Dose: 125 mg Lorazepam (Ativan) 0.5 mg PO Q4HR PRN; Protocol PRN Reason: Anxiety Stop: 01/18/20 02:33 Last Admin: 12/31/19 21:23 Dose: 0.5 mg Magnesium Hydroxide (Milk Of Magnesia) 30 ml PO HS [facility] Stop: 02/17/20 20:59 Last Admin: 12/31/19 20:43 Dose: 30 ml Metoprolol Tartrate (Lopressor) 50 mg PO BID GERARDO Stop: 02/17/20 08:59 Last Admin: 01/01/20 08:15 Dose: 50 mg Risperidone (Risperdal) 0.25 mg PO DAILY [facility]; Protocol Stop: 02/26/20 08:59 Last Admin: 01/01/20 08:15 Dose: 0.25 mg Risperidone (Risperdal) 0.5 mg PO HS GERARDO; Protocol Stop: 02/25/20 20:59 Last Admin: 12/31/19 20:43 Dose: 0.5 mg Senna (Senna) 8.6 mg PO BID G[facility] Stop: 02/17/20 08:59 Last Admin: 01/01/20 08:15 Dose: 8.6 mg Zolpidem Tartrate (Ambien) 5 mg PO HS PRN PRN Reason: Insomnia Stop: 02/17/20 02:33 Last Admin: 12/31/19 22:24 Dose: 5 mg General: NAD HEENT: NC/AT Neck: Supple Lungs: CTAB Cardiovascular: RRR Abdomen: soft Extremities: clear Neurological: no change Internal Medicine Assmt/Plan - Assessment Assessment: 1. s/p pneumonia 2. Tachycardia 3. COPD 4. DM s/p hypoglycemia off all dm meds for now - Plan Plan: continue albuterol nebulizers prn for COPD continue b-blockers for tachycardia tachycardia is reasonably controlled highest blood sugar is 168 which is random continue same meds d/w r.n. Nutritional Asmnt/Malnutr-PDOC - Dietary Evaluation Malnutrition Findings (Please click <Entered> for more info): Nutritional Asmnt/Malnutrition Start: 12/21/19 16: 43 Text: Status: Complete Freq: Protocol: Document 12/21/19 16:43 CHARLES (Rec: 12/21/19 16:45 CHARLES [email or web address]) Nutritional Asmnt/Malnutrition Patient General Information Nutritional Screening Moderate Risk Diagnosis Psychosis Pertinent Medical Hx/Surgical Hx COPD, Tachycardia, HTN, Dementia Subjective Information Pt is a 74-year-old female re- admitted on 12/17 d/t medical clearance at [facility] and confusion, yelling, and difficulty controlling behaviors. Pt is eating an estimated 40% of meals since re-admittance (x2 days) Per Meal/Nutrition Activity Record. Dietary is currently providing an estimated 1800 kcals and 110 gm Pro, per Pt PO intake this is providing an estimated 700 kcals and 45gm Pro to meet 41% kcal and 70% Pro needs- inadequate. Visited pt in afternoon, pt was able to answer simple questions. Answered questions, but also added nonsensicle words. Pt Nurse Jacquelyn thought maybe pt is a little exhausted when trying to eat as she has breathing difficulties, let her know I will provide Glucerna during snack times to help meet kcal needs and it may alleviate the energy of chewing during BLD. Offered pt a Glucerna shake and she accepted, stated chocolate when given a choice of flavor. Adding Glucerna BID at snack time to increase kcal intake. Anthropometrics HT: 57 WT: 184 LB (83.64 kg) ABW: 147 LB (66.93 kg) BMI: 28.82 (Overweight) GI/ Skin Integrity GI: WNL, Soft, Non-tender, Round BM: Not Noted I/O: 790/Not Noted Skin: Intact, Bruises Aamir: 15 Diet Order: [facility] 60 Estimated Energy Needs: ( Geriatric, ABW) 4487-4698 kcals (25-30 kcals/ kg) 65-80g Pro (1.0-1.2 g/kg) 3982-0948 ml (25-30 ml/kg) Current Diet Order/ Nutrition Support [facility] 60 Pertinent Medications Albuterol (PRN), Glucotrol, MOM (PRN), Senna Pertinent Labs 12/18: HDL 38, A1C 6.3% Nutritional Hx/Data Height 1.7 m Height (Calculated Centimeters) 170.2 Current Weight (lbs) 83.461 kg Weight (Calculated Kilograms) 83.5 Weight (Calculated Grams) 22825.0 [place] Body Weight 135 LB (61.36 kg) % [place] Body Weight 136 Body Mass Index (BMI) 28.8 Weight Status Overweight GI Symptoms Last BM Not Noted Skin Integrity/Comment: Skin: Intact, Bruises Aamir: 15 Nutritional Problem 2. Problem Problem Impaired nutrient utilization Etiology r/t endocrine dysfunction Signs/Symptoms: aeb labs (12/18) A1C 6.3%. 1. Problem Problem Inadequate energy intake Etiology r/t possible exhaustion from breathing issues Signs/Symptoms: aeb nurse report and PO intake 40% since re-admittance (x2 days). Intervention/Recommendation Comments 1.Continue CCHO 60gm diet as tolerated. 2.Add Glucerna BID at snack times (completed). Expected Outcomes/Goals Expected Outcomes/Goals 1.PO intake to meet 75% of estimated nutritional needs. 2.Monitor PO intake, wt, nutrition related labs, and skin integrity. 3.F/U as moderate risk in 3-5 days, 5/3-5.
[2020-01-01] MEDS: Magnesium Hydroxide (MOM) 30 mL UDC PO SCH (21:12)
--- NOTE | 2020-01-02 04:40 | Progress Notes ---
DATE: 01/01/2020 Case was discussed with staff of the patient, reviewed records. The patient continues to stay in bed. She is total care , incontinent. Continues to have episodes of yelling and screaming. Continues to be unable to make safe plan for self-care, acting bizarre. No side effects with the medication, no sedation, no nausea, no extrapyramidal symptoms. We will continue the patient in group therapy, milieu therapy, and adjust medication as needed. JOB# [id number] MTDD
--- NOTE | 2020-01-02 11:02 | Progress Notes ---
DATE: 01/02/2020 SUBJECTIVE: A 74-year-old female, currently in the hospital, mostly withdrawn, keeps to self, some improvement noted. Mostly withdrawn, still loud at times, unruly, but mostly isolative, still labile, demanding, likely approaching her baseline. We will need to contact Document Review Specialist to see what the discharge plan is. The patient slept for about 5 hours, still somewhat untrustworthy of staff, mumbling to self at times, but doing better on the Risperdal. Medications were reviewed. Labs reviewed. Vitals were reviewed. Blood pressure 152/73, pulse of 75. No side effects. MENTAL STATUS EXAMINATION: Stated age, withdrawn, confused, disoriented, redirectable. No SI. No HI. PLAN: We will continue inpatient monitoring. Time spent with the patient and also discussion with staff, review of the charting. Will also coordinate care with social insurance administrator. JOB# [id number]
[2020-01-02] MEDS: Magnesium Hydroxide (MOM) 30 mL UDC PO SCH (21:52)
--- NOTE | 2020-01-03 13:44 | Internal Medicine Prog Note ---
Internal Medicine Subjective - Subjective Service Date: 01/03/20 Patient seen and examined:: without staff Patient is:: verbal, interactive, in bed, confused Per staff patient has:: no adverse event, no episodes of fall Internal Medicine Objective - Results Recent Labs: Laboratory Last Values POC Glucose 115 MG/DL (70 - 105) H 01/03/20 11:17 - Physical Exam Vitals and I&O: Vital Signs Temp 97.5 F 01/03/20 06:49 Pulse 106 01/03/20 08:25 Resp 18 01/03/20 08:00 BP 137/61 01/03/20 08:25 Pulse Ox 96 01/03/20 06:49 Intake & Output 01/02/20 01/03/20 01/03/20 18:59 06:59 18:59 Intake Total 240 Balance 240 Intake: Oral 240 Other: # Voids 3 2 # Bowel Movements 4 2 Active Medications: Current Medications Acetaminophen (Tylenol) 650 mg PO Q4H PRN PRN Reason: Pain (Mild 1-3) Stop: 02/17/20 02:33 Last Admin: 01/03/20 08:42 Dose: 650 mg Albuterol Sulfate (Albuterol 2.5mg/3ml Neb Ud) 2.5 mg HHN Q4HRT PRN PRN Reason: Shortness of Breath Stop: 02/16/20 20:24 Last Admin: 12/20/19 14:35 Dose: 2.5 mg Divalproex Sodium (Depakote Dr) 125 mg PO BID G[facility]O; Protocol Stop: 02/19/20 16:59 Last Admin: 01/03/20 08:25 Dose: 125 mg Lorazepam (Ativan) 0.5 mg PO Q4HR PRN; Protocol PRN Reason: Anxiety Stop: 01/18/20 02:33 Last Admin: 01/03/20 08:42 Dose: 0.5 mg Magnesium Hydroxide (Milk Of Magnesia) 30 ml PO HS [facility] Stop: 02/17/20 20:59 Last Admin: 01/02/20 21:52 Dose: Not Given Metoprolol Tartrate (Lopressor) 50 mg PO BID GERARDO Stop: 02/17/20 08:59 Last Admin: 01/03/20 08:25 Dose: 50 mg Risperidone (Risperdal) 0.5 mg PO HS [facility]; Protocol Stop: 02/25/20 20:59 Last Admin: 01/02/20 21:52 Dose: Not Given Risperidone (Risperdal) 0.5 mg PO DAILY [facility]; Protocol Stop: 03/04/20 08:59 Senna (Senna) 8.6 mg PO BID [facility] Stop: 02/17/20 08:59 Last Admin: 01/03/20 08:25 Dose: 8.6 mg Zolpidem Tartrate (Ambien) 5 mg PO HS PRN PRN Reason: Insomnia Stop: 02/17/20 02:33 Last Admin: 01/01/20 21:13 Dose: 5 mg General: NAD HEENT: NC/AT Neck: Supple Lungs: CTAB Cardiovascular: RRR Abdomen: soft Extremities: clear Neurological: no change Internal Medicine Assmt/Plan - Assessment Assessment: 1. s/p pneumonia 2. Tachycardia 3. COPD 4. DM s/p hypoglycemia off all dm meds for now - Plan Plan: continue albuterol nebulizers prn for COPD continue b-blockers for tachycardia blood sugars are still reasonably controlled no need for medication for D.M. d/w r.n. Nutritional Asmnt/Malnutr-PDOC - Dietary Evaluation Malnutrition Findings (Please click <Entered> for more info): Nutritional Asmnt/Malnutrition Start: 12/21/19 16: 43 Text: Status: Complete Freq: Protocol: Document 12/21/19 16:43 CHARLES (Rec: 12/21/19 16:45 CHARLES [email or web address]) Nutritional Asmnt/Malnutrition Patient General Information Nutritional Screening Moderate Risk Diagnosis Psychosis Pertinent Medical Hx/Surgical Hx COPD, Tachycardia, HTN, Dementia Subjective Information Pt is a 74-year-old female re- admitted on 12/17 d/t medical clearance at [facility] and confusion, yelling, and difficulty controlling behaviors. Pt is eating an estimated 40% of meals since re-admittance (x2 days) Per Meal/Nutrition Activity Record. Dietary is currently providing an estimated 1800 kcals and 110 gm Pro, per Pt PO intake this is providing an estimated 700 kcals and 45gm Pro to meet 41% kcal and 70% Pro needs- inadequate. Visited pt in afternoon, pt was able to answer simple questions. Answered questions, but also added nonsensicle words. Pt Nurse Jacquelyn thought maybe pt is a little exhausted when trying to eat as she has breathing difficulties, let her know I will provide Glucerna during snack times to help meet kcal needs and it may alleviate the energy of chewing during BLD. Offered pt a Glucerna shake and she accepted, stated chocolate when given a choice of flavor. Adding Glucerna BID at snack time to increase kcal intake. Anthropometrics HT: 57 WT: 184 LB (83.64 kg) ABW: 147 LB (66.93 kg) BMI: 28.82 (Overweight) GI/ Skin Integrity GI: WNL, Soft, Non-tender, Round BM: Not Noted I/O: 790/Not Noted Skin: Intact, Bruises Aamir: 15 [facility]: [facility] 60 Estimated Energy Needs: ( Geriatric, ABW) 7368-5932 kcals (25-30 kcals/ kg) 65-80g Pro (1.0-1.2 g/kg) 1065-2930 ml (25-30 ml/kg) Current Diet Order/ Nutrition Support [facility] 60 Pertinent Medications Albuterol (PRN), Glucotrol, MOM (PRN), Senna Pertinent Labs 12/18: HDL 38, A1C 6.3% Nutritional Hx/Data Height 1.7 m Height (Calculated Centimeters) 170.2 Current Weight (lbs) 83.461 kg Weight (Calculated Kilograms) 83.5 Weight (Calculated Grams) 84792.0 [place] Body Weight 135 LB (61.36 kg) % [place] Body Weight 136 Body Mass Index (BMI) 28.8 Weight Status Overweight GI Symptoms Last BM Not Noted Skin Integrity/Comment: Skin: Intact, Bruises Aamir: 15 Nutritional Problem 2. Problem Problem Impaired nutrient utilization Etiology r/t endocrine dysfunction Signs/Symptoms: aeb labs (12/18) A1C 6.3%. 1. Problem Problem Inadequate energy intake Etiology r/t possible exhaustion from breathing issues Signs/Symptoms: aeb nurse report and PO intake 40% since re-admittance (x2 days). Intervention/Recommendation Comments 1.Continue CCHO 60gm diet as tolerated. 2.Add Glucerna BID at snack times (completed). Expected Outcomes/Goals Expected Outcomes/Goals 1.PO intake to meet 75% of estimated nutritional needs. 2.Monitor PO intake, wt, nutrition related labs, and skin integrity. 3.F/U as moderate risk in 3-5 days, 5/3-5/5.
[2020-01-03] MEDS: Magnesium Hydroxide (MOM) 30 mL UDC PO SCH (20:34)
[2020-01-04] MEDS: Magnesium Hydroxide (MOM) 30 mL UDC PO SCH (20:39)
--- NOTE | 2020-01-05 14:46 | Internal Medicine Prog Note ---
Internal Medicine Subjective - Subjective Service Date: 01/05/20 Patient seen and examined:: without staff Patient is:: verbal, interactive, in bed, confused Per staff patient has:: no adverse event, no episodes of fall Internal Medicine Objective - Results Recent Labs: Laboratory Last Values POC Glucose 123 MG/DL (70 - 105) H 01/05/20 05:06 - Physical Exam Vitals and I&O: Vital Signs Temp 97.9 F 01/05/20 06:00 Pulse 119 01/05/20 08:36 Resp 16 01/05/20 08:00 BP 167/89 01/05/20 08:36 Pulse Ox 95 01/05/20 06:00 Intake & Output 01/04/20 01/05/20 01/05/20 18:59 06:59 18:59 Intake Total 1000 120 Balance 1000 120 Intake: Oral 1000 120 Other: # Voids 3 2 # Bowel Movements 1 0 Active Medications: Current Medications Acetaminophen (Tylenol) 650 mg PO Q4H PRN PRN Reason: Pain (Mild 1-3) Stop: 02/17/20 02:33 Last Admin: 01/04/20 08:47 Dose: 650 mg Albuterol Sulfate (Albuterol 2.5mg/3ml Neb Ud) 2.5 mg HHN Q4HRT PRN PRN Reason: Shortness of Breath Stop: 02/16/20 20:24 Last Admin: 12/20/19 14:35 Dose: 2.5 mg Divalproex Sodium (Depakote Dr) 125 mg PO BID GERARDO; Protocol Stop: 02/19/20 16:59 Last Admin: 01/05/20 08:36 Dose: 125 mg Lorazepam (Ativan) 0.5 mg PO Q4HR PRN; Protocol PRN Reason: Anxiety Stop: 01/18/20 02:33 Last Admin: 01/05/20 03:23 Dose: 0.5 mg Magnesium Hydroxide (Milk Of Magnesia) 30 ml PO HS [facility] Stop: 02/17/20 20:59 Last Admin: 01/04/20 20:39 Dose: Not Given Metoprolol Tartrate (Lopressor) 50 mg PO BID GERARDO Stop: 02/17/20 08:59 Last Admin: 01/05/20 08:36 Dose: 50 mg Risperidone (Risperdal) 0.5 mg PO HS [facility]O; Protocol Stop: 02/25/20 20:59 Last Admin: 01/04/20 20:39 Dose: 0.5 mg Risperidone (Risperdal) 0.5 mg PO DAILY [facility]ER[facility]O; Protocol Stop: 03/04/20 08:59 Last Admin: 01/05/20 08:36 Dose: 0.5 mg Senna (Senna) 8.6 mg PO BID GERARDO Stop: 02/17/20 08:59 Last Admin: 01/05/20 08:36 Dose: 8.6 mg Zolpidem Tartrate (Ambien) 5 mg PO HS PRN PRN Reason: Insomnia Stop: 02/17/20 02:33 Last Admin: 01/04/20 20:40 Dose: 5 mg General: NAD HEENT: NC/AT Neck: Supple Lungs: CTAB Cardiovascular: RRR Abdomen: soft Extremities: clear Neurological: no change Internal Medicine Assmt/Plan - Assessment Assessment: 1. s/p pneumonia 2. Tachycardia 3. COPD 4. DM s/p hypoglycemia off all dm meds for now - Plan Plan: continue albuterol nebulizers prn for COPD continue b-blockers for tachycardia blood sugars are still reasonably controlled d/w r.n. Nutritional Asmnt/Malnutr-PDOC - Dietary Evaluation Malnutrition Findings (Please click <Entered> for more info): Nutritional Asmnt/Malnutrition Start: 12/21/19 16: 43 Text: Status: Complete Freq: Protocol: Document 12/21/19 16:43 CHARLES (Rec: 12/21/19 16:45 CHARLES [email or web address]) Nutritional Asmnt/Malnutrition Patient General Information Nutritional Screening Moderate Risk Diagnosis Psychosis Pertinent Medical Hx/Surgical Hx COPD, Tachycardia, HTN, Dementia Subjective Information Pt is a 74-year-old female re- admitted on 12/17 d/t medical clearance at [facility] and confusion, yelling, and difficulty controlling behaviors. Pt is eating an estimated 40% of meals since re-admittance (x2 days) Per Meal/Nutrition Activity Record. Dietary is currently providing an estimated 1800 kcals and 110 gm Pro, per Pt PO intake this is providing an estimated 700 kcals and 45gm Pro to meet 41% kcal and 70% Pro needs- inadequate. Visited pt in afternoon, pt was able to answer simple questions. Answered questions, but also added nonsensicle words. Pt Nurse Jacquelyn thought maybe pt is a little exhausted when trying to eat as she has breathing difficulties, let her know I will provide Glucerna during snack times to help meet kcal needs and it may alleviate the energy of chewing during BLD. Offered pt a Glucerna shake and she accepted, stated chocolate when given a choice of flavor. Adding Glucerna BID at snack time to increase kcal intake. Anthropometrics HT: 57 WT: 184 LB (83.64 kg) ABW: 147 LB (66.93 kg) BMI: 28.82 (Overweight) GI/ Skin Integrity GI: WNL, Soft, Non-tender, Round BM: Not Noted I/O: 790/Not Noted Skin: Intact, Bruises Aamir: 15 Diet Order: [facility] 60 Estimated Energy Needs: ( Geriatric, ABW) 1747-6856 kcals (25-30 kcals/ kg) 65-80g Pro (1.0-1.2 g/kg) 2249-2571 ml (25-30 ml/kg) Current Diet Order/ Nutrition Support [facility] 60 Pertinent Medications Albuterol (PRN), Glucotrol, MOM (PRN), Senna Pertinent Labs 12/18: HDL 38, A1C 6.3% Nutritional Hx/Data Height 1.7 m Height (Calculated Centimeters) 170.2 Current Weight (lbs) 83.461 kg Weight (Calculated Kilograms) 83.5 Weight (Calculated Grams) 37666.0 [place] Body Weight 135 LB (61.36 kg) % [place] Body Weight 136 Body Mass Index (BMI) 28.8 Weight Status Overweight GI Symptoms Last BM Not Noted Skin Integrity/Comment: Skin: Intact, Bruises Aamir: 15 Nutritional Problem 2. Problem Problem Impaired nutrient utilization Etiology r/t endocrine dysfunction Signs/Symptoms: aeb labs (12/18) A1C 6.3%. 1. Problem Problem Inadequate energy intake Etiology r/t possible exhaustion from breathing issues Signs/Symptoms: aeb nurse report and PO intake 40% since re-admittance (x2 days). Intervention/Recommendation Comments 1.Continue CCHO 60gm diet as tolerated. 2.Add Glucerna BID at snack times (completed). Expected Outcomes/Goals Expected Outcomes/Goals 1.PO intake to meet 75% of estimated nutritional needs. 2.Monitor PO intake, wt, nutrition related labs, and skin integrity. 3.F/U as moderate risk in 3-5 days, 5/3-5/5.
--- NOTE | 2020-01-05 16:18 | Progress Notes ---
DATE: 01/03/2020 SUBJECTIVE: A 74-year-old female in the hospital, yelling at me, screaming, demanding, trying to speak with elevations and she keeps yelling when I approach her. She is confused and disorganized, yelling, paranoid, scared of others, talking about Nura, delusional, not making much sense, was initially concerned about oversedation, but she seems to be very awake and alert, some ongoing symptoms for to really assess her. Time was spent trying to assess her, discussion with nurses. Notes were reviewed. Chart reviewed. Medications reviewed. Labs reviewed. Vitals were reviewed. No overt side effects. No EPS, no oversedation. MENTAL STATUS: Stated age. Fair eye contact, yelling, screaming, pointing, verbally aggressive. ASSESSMENT: A 74-year-old female with ongoing symptoms, not stable for discharge. PLAN: I will be increasing dosing of Risperdal. JOB# [id number]
--- NOTE | 2020-01-05 16:18 | Progress Notes ---
DATE: 01/05/2020 SUBJECTIVE: A 74-year-old female, currently in the hospital, still some yelling episodes, screaming episodes. I made some medication adjustments this week pending steady state, very confused, pointing, yelling, talking nonsense, disoriented, fair sleep and appetite. Staff having a hard time redirecting her. She is generally calmer since when she got here, but still with outbursts, breakthrough behaviors, agitation. Medications were reviewed. Labs were reviewed. Vitals were reviewed. No overt side effects. Evaluated for side effects, none noted. No EPS, no akathisia, no oversedation. MENTAL STATUS EXAMINATION: Little change from yesterday. Still pointing loud, yelling at times, confused. ASSESSMENT: A 74-year-old female with ongoing behavioral disturbances, agitation, escalation of behaviors, very confused. PLAN: Continue to monitor. Awaiting steady state of medications. We will consider continued dose adjustments. [facility]# [id number]
--- NOTE | 2020-01-05 16:18 | Progress Notes ---
DATE: 01/04/2020 SUBJECTIVE: A 74-year-old female, still agitated, yelling, screaming, really hard to control her behaviors, talking nonsense, confused, ongoing disorientation, tolerant of dosage, increase of medications, hard for me to have any sort of reasonable conversation with her, given how loud she is, confused she is. She is just yelling, pointing. Medications were reviewed. Labs were reviewed. Vitals were reviewed. Blood pressure 126/82, pulse of 81. No side effects. No EPS, no akathisia. MENTAL STATUS EXAMINATION: Still change in bed, pointing, yelling, confused, disoriented, unruly, restless, poor insight. DIAGNOSIS: No change. PLAN: Continue to monitor. Recent dose increase of Risperdal, tolerating well. JOB# [id number]
[2020-01-05] MEDS: Magnesium Hydroxide (MOM) 30 mL UDC PO SCH (20:42)
--- NOTE | 2020-01-06 15:18 | Progress Notes ---
DATE: 01/06/2020 SUBJECTIVE: A 74-year-old female in the hospital, seems to be calmer, still with some yelling episodes, screaming episodes, but more few and far between, calm this morning, is very confused, disorganized, still bizarre, pointing at times, gets angry, upset. Medications reviewed. Labs reviewed. Vitals were reviewed. No overt side effects. ASSESSMENT: A 74-year-old female with ongoing disturbances, some improvement noted. Nursing also noting some intermittent screaming, yelling p.r.n. seem helpful, some improvement. She is very confused. PLAN: We will continue to monitor. Also pending a safe disposition. JOB# [id number]
[2020-01-06] MEDS: Magnesium Hydroxide (MOM) 30 mL UDC PO SCH (21:37)
--- NOTE | 2020-01-07 14:30 | Progress Notes ---
DATE: 01/07/2020 SUBJECTIVE: A 74-year-old female, currently in the hospital, noted with ongoing paranoia, screaming episodes ____, mumbling to self, ____ paranoid with staff. She is calm this morning, but still yelling. Seems that she was doing better, but staff noting that she is still having breakthrough episodes of screaming, yelling. She is not particularly agitated, aggressive, just loud, verbally aggressive if anything bizarre. Discussed with nursing at length, still she is talking, mumbling to self, but slept pretty well. Medications were reviewed. Labs were reviewed. Vitals were reviewed. Blood pressure 119/67, pulse of 74. No overt side effects, hard to assess the patient. She is still confused, AO to name only. No EPS noted. ASSESSMENT: A 74-year-old female who remains confused, disoriented, still verbally aggressive, paranoid. PLAN: I will be titrating her dosing of Risperdal today. Monitor for discharge. [facility]# [id number]
[2020-01-07] MEDS: Magnesium Hydroxide (MOM) 30 mL UDC PO SCH (20:55)
[2020-01-08] MEDS ORDERED: GLUCAGON HCl 1 MG KIT IM PRN (12:17)
--- NOTE | 2020-01-08 14:40 | Internal Medicine Prog Note ---
Internal Medicine Subjective - Subjective Service Date: 01/08/20 Patient seen and examined:: without staff Patient is:: verbal, interactive, in bed, confused Per staff patient has:: no adverse event, no episodes of fall Internal Medicine Objective - Results Recent Labs: Laboratory Last Values POC Glucose 159 MG/DL (70 - 105) H 01/08/20 10:27 - Physical Exam Vitals and I&O: Vital Signs Temp 97.6 F 01/08/20 06:33 Pulse 69 01/08/20 08:27 Resp 18 01/08/20 08:00 BP 140/82 01/08/20 08:27 Pulse Ox 96 01/08/20 06:33 Intake & Output 01/07/20 01/08/20 01/08/20 18:59 06:59 18:59 Intake Total 900 360 Balance 900 360 Intake: Oral 900 360 Other: # Voids 3 1 # Bowel Movements 1 Active Medications: Current Medications Acetaminophen (Tylenol) 650 mg PO Q4H PRN PRN Reason: Pain (Mild 1-3) Stop: 02/17/20 02:33 Last Admin: 01/08/20 04:09 Dose: 650 mg Albuterol Sulfate (Albuterol 2.5mg/3ml Neb Ud) 2.5 mg HHN Q4HRT PRN PRN Reason: Shortness of Breath Stop: 02/16/20 20:24 Last Admin: 12/20/19 14:35 Dose: 2.5 mg Dextrose (Glutose 40%) 18.75 gm PO PRN PRN PRN Reason: Blood Glucose less than 70 Stop: 03/08/20 12:16 Divalproex Sodium (Depakote Dr) 125 mg PO BID [facility]; Protocol Stop: 02/19/20 16:59 Last Admin: 01/08/20 08:27 Dose: 125 mg Glucagon (Glucagen) 1 mg IM PRN PRN PRN Reason: Blood Glucose less than 70 Stop: 03/08/20 12:16 Insulin Human Lispro (Humalog Insulin Sliding Scale) 0 units SUBQ ACHS [facility]; Protocol Stop: 03/08/20 16:29 Lorazepam (Ativan) 0.5 mg PO Q4HR PRN; Protocol PRN Reason: Anxiety Stop: 01/18/20 02:33 Last Admin: 01/07/20 22:25 Dose: 0.5 mg Magnesium Hydroxide (Milk Of Magnesia) 30 ml PO HS [facility] Stop: 02/17/20 20:59 Last Admin: 01/07/20 20:55 Dose: 30 ml Metoprolol Tartrate (Lopressor) 50 mg PO BID [facility] Stop: 02/17/20 08:59 Last Admin: 01/08/20 08:27 Dose: 50 mg Risperidone (Risperdal) 0.5 mg PO HS [facility]; Protocol Stop: 02/25/20 20:59 Last Admin: 01/07/20 20:55 Dose: 0.5 mg Risperidone (Risperdal) 0.75 mg PO DAILY [facility]; Protocol Stop: 03/07/20 08:59 Last Admin: 01/08/20 08:26 Dose: 0.75 mg Senna (Senna) 8.6 mg PO BID [facility] Stop: 02/17/20 08:59 Last Admin: 01/08/20 08:27 Dose: 8.6 mg Zolpidem Tartrate (Ambien) 5 mg PO HS PRN PRN Reason: Insomnia Stop: 02/17/20 02:33 Last Admin: 01/07/20 20:56 Dose: 5 mg General: NAD HEENT: NC/AT Neck: Supple Lungs: CTAB Cardiovascular: RRR Abdomen: soft Extremities: clear Neurological: no change Internal Medicine Assmt/Plan - Assessment Assessment: 1. s/p pneumonia 2. Tachycardia 3. COPD 4. DM s/p hypoglycemia off all dm meds for now - Plan Plan: continue albuterol nebulizers prn for COPD continue b-blockers for tachycardia d.w r.n. Nutritional Asmnt/Malnutr-PDOC - Dietary Evaluation Malnutrition Findings (Please click <Entered> for more info): Nutritional Asmnt/Malnutrition Start: 12/21/19 16: 43 Text: Status: Complete Freq: Protocol: Document 12/21/19 16:43 CHARLES (Rec: 12/21/19 16:45 [email or web address] [id number]) Nutritional Asmnt/Malnutrition Patient General Information Nutritional Screening Moderate Risk Diagnosis Psychosis Pertinent Medical Hx/Surgical Hx COPD, Tachycardia, HTN, Dementia Subjective Information Pt is a 74-year-old female re- admitted on 12/17 d/t medical clearance at [facility] and confusion, yelling, and difficulty controlling behaviors. Pt is eating an estimated 40% of meals since re-admittance (x2 days) Per Meal/Nutrition Activity Record. Dietary is currently providing an estimated 1800 kcals and 110 gm Pro, per Pt PO intake this is providing an estimated 700 kcals and 45gm Pro to meet 41% kcal and 70% Pro needs- inadequate. Visited pt in afternoon, pt was able to answer simple questions. Answered questions, but also added nonsensicle words. Pt Nurse Jacquelyn thought maybe pt is a little exhausted when trying to eat as she has breathing difficulties, let her know I will provide Glucerna during snack times to help meet kcal needs and it may alleviate the energy of chewing during BLD. Offered pt a Glucerna shake and she accepted, stated chocolate when given a choice of flavor. Adding Glucerna BID at snack time to increase kcal intake. Anthropometrics HT: 57 WT: 184 LB (83.64 kg) ABW: 147 LB (66.93 kg) BMI: 28.82 (Overweight) GI/ Skin Integrity GI: WNL, Soft, Non-tender, Round BM: Not Noted I/O: 790/Not Noted Skin: Intact, Bruises Aamir: 15 Diet Order: [facility] 60gm Estimated Energy Needs: ( Geriatric, ABW) 9959-6935 kcals (25-30 kcals/ kg) 65-80g Pro (1.0-1.2 g/kg) 7372-8166 ml (25-30 ml/kg) Current Diet Order/ Nutrition [facility] Pertinent Medications Albuterol (PRN), Glucotrol, MOM (PRN), Senna Pertinent Labs 12/18: HDL 38, A1C 6.3% Nutritional Hx/Data Height 1.7 m Height (Calculated Centimeters) 170.2 Current Weight (lbs) 83.461 kg Weight (Calculated Kilograms) 83.5 Weight (Calculated Grams) 90770.0 [place] Body Weight 135 LB (61.36 kg) % [place] Body Weight 136 Body Mass Index (BMI) 28.8 Weight Status Overweight GI Symptoms Last BM Not Noted Skin Integrity/Comment: Skin: Intact, Bruises Aamir: 15 Nutritional Problem 2. Problem Problem Impaired nutrient utilization Etiology r/t endocrine dysfunction Signs/Symptoms: aeb labs (12/18) A1C 6.3%. 1. Problem Problem Inadequate energy intake Etiology r/t possible exhaustion from breathing issues Signs/Symptoms: aeb nurse report and PO intake 40% since re-admittance (x2 days). Intervention/Recommendation Comments 1.Continue CCHO 60gm diet as tolerated. 2.Add Glucerna BID at snack times (completed). Expected Outcomes/Goals Expected Outcomes/Goals 1.PO intake to meet 75% of estimated nutritional needs. 2.Monitor PO intake, wt, nutrition related labs, and skin integrity. 3.F/U as moderate risk in 3-5 days, /3-12/25.
[2020-01-08] MEDS: INSULIN LISPRO SLIDING SCALE 100 UNITS/ML UNIT SUBQ SCH ×2 (16:15→21:38)
--- NOTE | 2020-01-08 16:21 | Progress Notes ---
DATE: 01/08/2020 SUBJECTIVE: A 74-year-old female, currently in the hospital, noted to be still with some yelling episodes, screaming episodes, but generally calmer, seems to be to some extent approaching at baseline, still with ongoing confusion, disorientation, still irritated at times, easily triggered by staff, outbursts of yelling, but she seems more redirectable. Staff noting that she has generally been calmer since she has been in the hospital. Resting comfortably right now, sleeping, but arousable, very confused. Medications were reviewed. Labs reviewed. Vitals were reviewed. No overt side effects. No EPS, no oversedation. ASSESSMENT: A 74-year-old female who remains confused, ongoing disorientation, seemingly calmer. PLAN: We will err on the side of caution and monitor for further 24 hours. We will also attempt to confirm a safe discharge plan. JOB# [id number]
[2020-01-08] MEDS: Magnesium Hydroxide (MOM) 30 mL UDC PO SCH (21:57)
[2020-01-09] MEDS: INSULIN LISPRO SLIDING SCALE 100 UNITS/ML UNIT SUBQ SCH ×4 (06:37→20:57)
--- NOTE | 2020-01-09 14:41 | Internal Medicine Prog Note ---
Internal Medicine Subjective - Subjective Service Date: 01/09/20 (non-productive cough) Patient seen and examined:: without staff Patient is:: verbal, interactive, in bed, confused Per staff patient has:: no adverse event, no episodes of fall Internal Medicine Objective - Results Recent Labs: Laboratory Last Values POC Glucose 167 MG/DL (70 - 105) H 01/09/20 11:04 - Physical Exam Vitals and I&O: Vital Signs Temp 98.6 F 01/09/20 05:42 Pulse 83 01/09/20 08:44 Resp 18 01/09/20 07:52 BP 143/73 01/09/20 08:44 Pulse Ox 93 01/09/20 05:42 Intake & Output 01/08/20 01/09/20 01/09/20 18:59 06:59 18:59 Intake Total 1200 360 Output Total 2 Balance 1200 358 Intake: Oral 960 360 Other 240 Output: Urine/Stool Mix 2 Other: # Voids 4 1 # Bowel Movements 1 1 Active Medications: Current Medications Acetaminophen (Tylenol) 650 mg PO Q4H PRN PRN Reason: Pain (Mild 1-3) Stop: 02/17/20 02:33 Last Admin: 01/08/20 04:09 Dose: 650 mg Albuterol Sulfate (Albuterol 2.5mg/3ml Neb Ud) 2.5 mg HHN Q4HRT PRN PRN Reason: Shortness of Breath Stop: 02/16/20 20:24 Last Admin: 12/20/19 14:35 Dose: 2.5 mg Dextrose (Glutose 40%) 18.75 gm PO PRN PRN PRN Reason: BS Below 70 if tolerate po Stop: 03/08/20 12:16 Divalproex Sodium (Depakote Dr) 125 mg PO BID [facility]; Protocol Stop: 02/19/20 16:59 Last Admin: 01/09/20 08:44 Dose: 125 mg Glucagon (Glucagen) 1 mg IM PRN PRN PRN Reason: BS Below 70 if not tolerate po Stop: 03/08/20 12:16 Insulin Human Lispro (Humalog Insulin Sliding Scale) 0 units SUBQ ACHS [facility]; Protocol Stop: 03/08/20 16:29 Last Admin: 01/09/20 11:14 Dose: 2 units Lorazepam (Ativan) 0.5 mg PO Q4HR PRN; Protocol PRN Reason: Anxiety Stop: 01/18/20 02:33 Last Admin: 01/09/20 08:44 Dose: 0.5 mg Magnesium Hydroxide (Milk Of Magnesia) 30 ml PO HS [facility] Stop: 02/17/20 20:59 Last Admin: 01/08/20 21:57 Dose: 30 ml Metoprolol Tartrate (Lopressor) 50 mg PO BID [facility] Stop: 02/17/20 08:59 Last Admin: 01/09/20 08:44 Dose: 50 mg Risperidone (Risperdal) 0.5 mg PO HS [facility]; Protocol Stop: 02/25/20 20:59 Last Admin: 01/08/20 21:55 Dose: 0.5 mg Risperidone (Risperdal) 0.75 mg PO DAILY [facility]; Protocol Stop: 03/07/20 08:59 Last Admin: 01/09/20 08:44 Dose: 0.75 mg Senna (Senna) 8.6 mg PO BID [facility] Stop: 02/17/20 08:59 Last Admin: 01/09/20 08:44 Dose: 8.6 mg Zolpidem Tartrate (Ambien) 5 mg PO HS PRN PRN Reason: Insomnia Stop: 02/17/20 02:33 Last Admin: 01/08/20 21:55 Dose: 5 mg General: NAD HEENT: NC/AT Neck: Supple Lungs: CTAB Cardiovascular: RRR Abdomen: soft Extremities: clear Neurological: no change Internal Medicine Assmt/Plan - Assessment Assessment: 1. s/p pneumonia 2. Tachycardia 3. COPD 4. DM s/p hypoglycemia off all dm meds for now - Plan Plan: continue albuterol nebulizers prn for COPD continue b-blockers for tachycardia covid test was lost according to nurse which was ordered 01/03. waiting for covid test to be repeated and results pending patient can be discharged once covid results is negative. Nutritional Asmnt/Malnutr-PDOC - Dietary Evaluation Malnutrition Findings (Please click <Entered> for more info): Nutritional Asmnt/Malnutrition Start: 12/21/19 16: 43 Text: Status: Complete Freq: Protocol: Document 12/21/19 16:43 CHARLES (Rec: 12/21/19 16:45 CHARLES [id number]) Nutritional Asmnt/Malnutrition Patient General Information Nutritional Screening Moderate Risk Diagnosis Psychosis Pertinent Medical Hx/Surgical Hx COPD, Tachycardia, HTN, Dementia Subjective Information Pt is a 74-year-old female re- admitted on 12/17 d/t medical clearance at [facility] and confusion, yelling, and difficulty controlling behaviors. Pt is eating an estimated 40% of meals since re-admittance (x2 days) Per Meal/Nutrition Activity Record. Dietary is currently providing an estimated 1800 kcals and 110 gm Pro, per Pt PO intake this is providing an estimated 700 kcals and 45gm Pro to meet 41% kcal and 70% Pro needs- inadequate. Visited pt in afternoon, pt was able to answer simple questions. Answered questions, but also added nonsensicle words. Pt Nurse Jacquelyn thought maybe pt is a little exhausted when trying to eat as she has breathing difficulties, let her know I will provide Glucerna during snack times to help meet kcal needs and it may alleviate the energy of chewing during BLD. Offered pt a Glucerna shake and she accepted, stated chocolate when given a choice of flavor. Adding Glucerna BID at snack time to increase kcal intake. Anthropometrics HT: 57 WT: 184 LB (83.64 kg) ABW: 147 LB (66.93 kg) BMI: 28.82 (Overweight) GI/ Skin Integrity GI: WNL, Soft, Non-tender, Round BM: Not Noted I/O: 790/Not Noted Skin: Intact, Bruises Aamir: 15 [facility] Estimated Energy Needs: ( Geriatric, ABW) 1291-1228 kcals (25-30 kcals/ kg) 65-80g Pro (1.0-1.2 g/kg) 7213-1480 ml (25-30 ml/kg) Current Diet Order/ Nutrition Support [facility] 60[facility] Pertinent Medications Albuterol (PRN), Glucotrol, MOM (PRN), Senna Pertinent Labs 12/18: HDL 38, A1C 6.3% Nutritional Hx/Data Height 1.7 m Height (Calculated Centimeters) 170.2 Current Weight (lbs) 83.461 kg Weight (Calculated Kilograms) 83.5 Weight (Calculated Grams) 73152.0 [place] Body Weight 135 LB (61.36 kg) % [place] Body Weight 136 Body Mass Index (BMI) 28.8 Weight Status Overweight GI Symptoms Last BM Not Noted Skin Integrity/Comment: Skin: Intact, Bruises Aamir: 15 Nutritional Problem 2. Problem Problem Impaired nutrient utilization Etiology r/t endocrine dysfunction Signs/Symptoms: aeb labs (12/18) A1C 6.3%. 1. Problem Problem Inadequate energy intake Etiology r/t possible exhaustion from breathing issues Signs/Symptoms: aeb nurse report and PO intake 40% since re-admittance (x2 days). Intervention/Recommendation Comments 1.Continue CCHO 60gm diet as tolerated. 2.Add Glucerna BID at snack times (completed). Expected Outcomes/Goals Expected Outcomes/Goals 1.PO intake to meet 75% of estimated nutritional needs. 2.Monitor PO intake, wt, nutrition related labs, and skin integrity. 3.F/U as moderate risk in 3-5 days, /3-/5.
--- NOTE | 2020-01-09 16:05 | Progress Notes ---
DATE: 01/09/2020 SUBJECTIVE: The patient was supposed to have been discharged yesterday, for unclear reasons the discharge was held. I do not have a clear and concise answer from nursing staff. The patient at her baseline, calm, still confused, but no agitation. No SI, no HI, I will discharge today. Placement confirmed. JOB# [id number]
[2020-01-09] MEDS: Magnesium Hydroxide (MOM) 30 mL UDC PO SCH (20:46)
[2020-01-10] MEDS: INSULIN LISPRO SLIDING SCALE 100 UNITS/ML UNIT SUBQ SCH ×2 (06:49→12:00)
--- NOTE | 2020-01-10 12:20 | Discharge Summary ---
DATE OF DISCHARGE: 01/10/2020 HISTORY OF PRESENT ILLNESS: A 74-year-old female, currently in the hospital, admitted on 12/19/2019, discharged on 01/10/2020. Poor orientation, confusion, disoriented, screaming, yelling, unruly. PAST PSYCHIATRIC HISTORY: Admissions in the hospital, dementia. She has been here before. SOCIAL HISTORY: senior care. DIAGNOSIS: Dementia, rule out bipolar. PAST MEDICAL HISTORY: Please see full H and P. HOSPITAL COURSE: After initial assessment, the patient was started on medications Risperdal. Medications were adjusted, titrated. Over the course of treatment, mood and affect improved. She was still yelling, pointing, demanding, but less, more redirectable, far fewer screaming episodes, yelling episodes. CONDITION UPON DISCHARGE: Improved. Still confused, disoriented, mild yelling, but less. No SI, no HI, no psychosis. Ruminating about things. DISCHARGE DIAGNOSIS: Dementia, rule out bipolar. MEDICAL: Please see full H and P. PROGNOSIS: The patient follows up with outpatient mental health services and remains compliant with treatment. Prognosis will improve, otherwise guarded. JOB# [id number]
== END 2020-01-10 13:30 | DRG 884 ==
LOC: GERO 20:15
PROVIDERS: ADMIT Psychiatry & Neurology Psychiatry; ATTEND Psychiatry & Neurology Psychiatry
DX: F03.90 Unspecified dementia, unspecified severity, without behavioral disturbance, psychotic disturbance, mood disturbance, and anxiety (principal); J18.9 Pneumonia, unspecified organism; F32.9 Major depressive disorder, single episode, unspecified; J44.9 Chronic obstructive pulmonary disease, unspecified; E11.649 Type 2 diabetes mellitus with hypoglycemia without coma; I48.91 Unspecified atrial fibrillation; Z79.899 Other long term (current) drug therapy
CPT/HCPCS: 82948-90; 83036-90; J7613; Z7610